=== PATIENT | female | born 1990 | race Caucasian/White ===

== ENCOUNTER → 2018-05-30 | Outpatient (CLI) | payer MEDICAID ==
--- NOTE | 2018-05-30 14:21 | Diagnostic Imaging Report ---
INDICATION: survey. TECHNIQUE: Multiple real-time grayscale images were obtained over the gravid uterus. COMPARISON: None. FINDINGS: There is a single live fetus in a breach presentation. Placenta is posterior. Amniotic fluid volume appears normal. heart rate was recorded at 152 beats per minute. survey demonstrates kidneys, bladder and stomach to be unremarkable. brain is unremarkable. There is a four-chamber heart. There is a three-vessel cord with normal insertion. spine is unremarkable although the lumbar spine was not well seen on today's study due to position. Biometrical measurements are as follows: Biparietal 7.2 cm, age 29 weeks 0 days. Head circumference 26.9 cm, age 29 weeks 3 days. Abdominal circumference 25.7 cm, age 29 weeks 6 days. Femur length 5.7 cm, age 29 weeks 6 days. Sonographic estimate age: 29 weeks 4 days. Sonographic estimated date of delivery: 08/11/18. Estimated Weight: 1438 gm (+/- 210 gm). LMP percentile: 41%. heart rate: 152 beats per minute. number: 1 of 1. IMPRESSION: Single live IUP 29 weeks 4 days gestational age. Estimated date of confinement sonographically is 08/11/2018. survey is unremarkable although the lumbar spine was not well visualized. Followup could be performed. Dictated by: Dictated on workstation # [id number]
== END ==
LOC: RAD 13:01
PROVIDERS: ATTEND Family Medicine
DX: Z36.89 Encounter for other specified antenatal screening (principal); Z3A.29 29 weeks gestation of pregnancy
CPT/HCPCS: 76805

== ENCOUNTER → 2018-08-14 | Outpatient (CLI) | payer MEDICAID ==
[~2018-08-14] MED LIST: ACHD5005 PO; AMOX-358 PO; CLIN300C3 PO; DOCU100C37 PO; IBUP-844 PO; OMEP10CA4 PO; PREN-142 PO
[2018-08-14 14:34] VITALS: BP 127/60
--- NOTE | 2018-08-14 14:47 | Diagnostic Imaging Report ---
INDICATION: Post term. FINDINGS: There is a single live fetus in a cephalic presentation. The heart rate was recorded at 124 BPM. The amniotic fluid index is 10.4 cm. The placenta is posterior. The biophysical profile score is normal at 8 out of 8 points. IMPRESSION: The biophysical profile score is 8 out of 8 points. Dictated by: Dictated on workstation # [id number]
== END ==
LOC: RAD 12:31
PROVIDERS: ATTEND Family Medicine
DX: O48.0 Post-term pregnancy (principal); Z3A.42 42 weeks gestation of pregnancy
CPT/HCPCS: 76819

== ENCOUNTER 2018-08-17 02:27 | Inpatient (IN) | payer MEDICAID ==
[2018-08-17] VITALS (58 sets, daily range): BP systolic 105–152; BP diastolic 52–96
[~2018-08-17] VITALS: Ht 154.9 cm; Wt 77.6 kg
[2018-08-17] MEDS ORDERED: AMPICILLIN FOR IV USE 2,000 MG in NS (IVPB) 50 ML IV SCH (02:54)
[2018-08-17] MEDS: D5 LR IV SOLUTION 1,000 ML IV SCH ×3 (03:00→15:50)
[2018-08-17] MEDS ORDERED: OMEP10CA4 PO (03:01)
[2018-08-17] MEDS ORDERED: PREN-142 PO (03:01)
[2018-08-17] MEDS ORDERED: AMPICILLIN 2,000 MG/20 ML (IV USE) ONE (03:06)
[2018-08-17] MEDS ORDERED: NS (IVPB) 50 ML ONE (03:06)
--- OUTSIDE RECORDS SUMMARY | 2018-08-17 03:12 | XMS REPORT ---
Author Author CHICA ALVAREZ [facility] Address [address] [place] [address] Care Team Providers Care Support Manager Name Role Phone CHICA ALVAREZ Unavailable PROBLEMS Unknown Problems ALLERGIES No Information ENCOUNTERS Encounter Location Date Diagnosis [facility] [id number] [place] [address] 40345- 0297 Jun, [facility] [id number] [place] [address] 99532- 9043 Jun, Third trimester Z34.93 [place] [id number] [place] [address] 41753- 0867 Jun, Third trimester Z34.93 [facility] [id number] [place] [address] 30986- 9398 May, Second trimester Z34.92 and Encounter for immunization Z23 [facility] [id number] [place] [address] 29822- 4850 Apr, Encounter for supervision of normal in second trimester Z34.92 [facility] [id number] [place] [address] 58271- 9918 Apr, [facility] [id number] [place] [address] 02021- 3077 Mar, Normal , first Z34.00 [facility] [id number] [place] [address] 62778- 0620 February, [facility] [id number] [place] [address] 12554- 8997 February, Normal , first Z34.00 [facility] [id number] [place] [address] 87509- 6770 Jan, Encounter for test, result unknown Z32.00 [facility] [id number] [place] [address] 17085- 2747 19 Jun, 2017 General medical exam Z00.00 ; Routine gynecological examination Z01.419 ; History of UTI Z87.440 and Vaginal discharge N89.8 [facility] [id number] [place] [address] 08046- 0633 May, [facility] [id number] [place] [address] 78253- 2188 17 May, 2017 Lower abdominal pain R10.30 ; Vaginal discharge N89.8 and Acute cystitis with hematuria N30.01 [facility] [id number] [place] [address] 83199- 9160 16 May, 2017 [facility] [id number] [place] [address] 07404- 6638 14 Jan, 2015 [facility] [id number] [place] [address] 99227- 2215 Jan, [facility] [id number] [place] [address] 84005- 9199 Jul, [facility] [id number] [place] [address] 28390- 5406 Jul, [facility] [id number] [place] [address] 50592- 0183 Sep, [facility] [id number] [place] [address] 93835- 1205 Sep, [facility] [id number] [place] [address] 13098- 9428 Sep, [facility] [id number] [place] [address] 63926- 7775 Sep, [facility] [id number] [place] [address] 59664- 5607 Sep, [facility] [id number] [address] 2546 Sep, 2012 [facility] [address] [address]- 7666 Sep, [facility] [id number], [place] [address]- 8274 Sep, 2012 [facility] [id number] [place] [address] 73175- 8078 Sep, 2012 [facility] [id number] [place] [address] 071403- 2632 Aug, [facility] [id number] [place] [address] 19763- 1672 Aug, [facility] [id number] [place] [address] 226245- 1131 Aug, [facility] [id number] [place] [address] 08845- 1147 Jul, [facility] [address] [address]- 3981 Jul, [facility] [id number] [address]- 3301 Jun, IMMUNIZATIONS Vaccine Route Administration Date Status TDAP (BOOSTRIX) IM Intramuscular Jun 13, 2018 Administered SOCIAL HISTORY Never Assessed REASON FOR VISIT 4 wk f/u-awoods PLAN OF CARE Activity Details Follow Up 2 Weeks Reason: VITAL SIGNS Height 61 in 2018-06-13 Weight 153.5 lbs 2018-06-13 Temperature 98.6 degrees Fahrenheit 2018-06-13 Heart Rate 107 bpm 2018-06-13 Respiratory Rate 18 2018-06-13 BMI 29.004 kg/m2 2018-06-13 Blood pressure systolic 98 mmHg 2018-06-13 Blood pressure diastolic 62 mmHg 2018-06-13 MEDICATIONS Medication Instructions Dosage Frequency Start Date End Date Duration Status Active Omeprazole 20 mg Orally Once a day 1 capsule 24h May, 30 day(s ) Active RESULTS Name Result Date Reference Range UA OB DIP (IN HOUSE) 2018-06-13 Glucose neg Protein 1+ PROCEDURES Procedure Date Ordered Result Body Site URINE-NO MICRO Jun 13, 2018 SINGLE IMMUNIZATION ADMIN Jun 13, 2018 TDAP (BOOSTRIX) Jun 13, 2018 INSTRUCTIONS MEDICATIONS ADMINISTERED No Known Medications MEDICAL (GENERAL) HISTORY Type Description Date Surgical History No know Surgical history
--- OUTSIDE RECORDS SUMMARY | 2018-08-17 03:12 | XMS REPORT ---
Author CHICA Saha [facility] Address [address] [place] [address] Care Team Providers Care Cavalry Officer Name Role Phone CHICA ALVAREZ Unavailable PROBLEMS Unknown Problems ALLERGIES ENCOUNTERS IMMUNIZATIONS No Known Immunizations SOCIAL HISTORY No smoking Hx information available REASON FOR VISIT PLAN OF CARE VITAL SIGNS MEDICATIONS RESULTS PROCEDURES INSTRUCTIONS MEDICATIONS ADMINISTERED No Known Medications MEDICAL (GENERAL) HISTORY
--- OUTSIDE RECORDS SUMMARY | 2018-08-17 03:12 | XMS REPORT ---
Author Author CHICA ALVAREZ [facility] Address [address] [place] [address] Care Team Providers Care Oyster Preparer Name Role Phone CHICA ALVAREZ Unavailable PROBLEMS Unknown Problems ALLERGIES Substance Reaction Event Type Date Status Miconazole rash Drug Allergy Apr, Active Diflucan rash Drug Allergy Apr, Active Codeine Pt's mom is allergic so she does not try it Drug Allergy Apr, Active ENCOUNTERS Encounter Location Date Diagnosis [facility] [id number] [place] [address] 36998- 6449 Jun, [place] [address] 69034- 1863 Jun, Third trimester Z34.93 [facility] [id number] [place] [address] 78610- 5940 May, Second trimester Z34.92 and Encounter for immunization Z23 [facility] [id number] [place] [address] 53360- 3066 Apr, Encounter for supervision of normal in second trimester Z34.92 [facility] [id number] [place] [address] 39163- 3151 Apr, [facility] [id number] [place] [address] 24769- 6238 Mar, Normal , first Z34.00 [facility] [id number] [place] [address] 93574- 2162 February, [facility] [id number] [place] [address] 11025- 2675 February, Normal , first Z34.00 [facility] [address] [place] [address]- 1430 27 Jan, 2018 Encounter for test, result unknown Z32.00 [facility] [id number] [place] [address] 58172- 4852 19 Jun, 2017 General medical exam Z00.00 ; Routine gynecological examination Z01.419 ; History of UTI Z87.440 and Vaginal discharge N89.8 [facility] [id number] [place] [address] 66206- 3870 May, [facility] [id number] [place] [address] 43709- 0202 17 May, 2017 Lower abdominal pain R10.30 ; Vaginal discharge N89.8 and Acute cystitis with hematuria N30.01 [facility] [id number] [place] [address] 62751- 7938 16 May, 2017 [facility] [id number] [place] [address] 68459- 7889 14 Jan, 2015 [facility] [id number] [place] [address] 65065- 0079 Jan, [facility] [id number] [place] [address] 36805- 5175 Jul, [facility] [id number] [place] [address] 87088- 5943 Jul, [facility] [id number] [place] [address] 79340- 5563 Sep, [facility] [id number] [place] [address] 61192- 8317 Sep, [facility] [id number] [place] [address] 09712- 4390 Sep, [facility] [id number], [place] [address]- 0565 Sep, [facility] [id number] [place] [address] 719220- 5702 Sep, [facility] [address] [facility] [id number] [address]- 2546 Sep, [facility] [address] [facility] [id number], [place] [address]- 2546 Sep, [facility] [address] [facility] [id number], [place] [address]- 2546 Sep, [facility] [address] [facility] [id number], [place] [address]- 2545 Sep, [facility] [address] [facility] [id number], [place] [address]- 2003 Aug, [facility] [address] [facility] [id number], [place] [address] 2541 Aug, [facility] [id number], [place] [address] 2542 Aug, [facility] [id number], [place] [address] 2548 Jul, [facility] [id number], [place] [address] 2548 Jul, [facility] [id number] [address] 254 Jun, IMMUNIZATIONS No Known Immunizations SOCIAL HISTORY Never Assessed REASON FOR VISIT 4 wk f/u-Wanda PLAN OF CARE Activity Details Follow Up 4 Weeks Reason: VITAL SIGNS Height 61 in 2018-05-16 Weight 149.1 lbs 2018-05-16 Temperature 97.8 degrees Fahrenheit 2018-05-16 Heart Rate 96 bpm 2018-05-16 Respiratory Rate 18 2018-05-16 BMI 28.172 kg/m2 2018-05-16 Blood pressure systolic 108 mmHg 2018-05-16 Blood pressure diastolic 64 mmHg 2018-05-16 MEDICATIONS Medication Instructions Dosage Frequency Start Date End Date Duration Status Active RESULTS No Results PROCEDURES No Known procedures INSTRUCTIONS MEDICATIONS ADMINISTERED No Known Medications
--- OUTSIDE RECORDS SUMMARY | 2018-08-17 03:12 | XMS REPORT ---
Author Author CHICA ALVAREZ [facility] Address [address] [place] [address] Care Team Providers Care Electrical Intern Name Role Phone CHICA ALVAREZ Unavailable PROBLEMS Unknown Problems ALLERGIES No Information ENCOUNTERS Encounter Location Date Diagnosis [facility] [id number] [place] [address] 45136- 9783 Jul, [facility] [id number] [place] [address] 99512- 0594 Jun, Third trimester Z34.93 [facility] [id number] [place] [address] 80186- 9726 Jun, Third trimester Z34.93 [facility] [id number] [place] [address] 20135- 5428 Jun, Third trimester Z34.93 [facility] [id number] [place] [address] 54722- 8520 May, Second trimester Z34.92 and Encounter for immunization Z23 [facility] [id number] [place] [address] 90084- 7200 Apr, Encounter for supervision of normal in second trimester Z34.92 [facility] [id number] [place] [address] 98262- 5513 Apr, [facility] [id number] [place] [address] 78184- 4998 Mar, Normal , first Z34.00 [facility] [id number] [place] [address] 45820- 9887 February, [facility] [id number] [place] [address] 39077- 2219 February, Normal , first Z34.00 [facility] [id number] [place] [address] 30629- 0278 27 Jan, 2018 Encounter for test, result unknown Z32.00 [facility] [address], [place] [address]- 0984 19 Jun, 2017 General medical exam Z00.00 ; Routine gynecological examination Z01.419 ; History of UTI Z87.440 and Vaginal discharge N89.8 [facility] [id number] [place] [address] 64512- 2853 May, [facility] [id number] [place] [address] 20775- 2764 17 May, 2017 Lower abdominal pain R10.30 ; Vaginal discharge N89.8 and Acute cystitis with hematuria N30.01 [facility] [id number] [place] [address] 72204- 2481 16 May, 2017 [facility] [id number] [place] [address] 43624- 2462 14 Jan, 2015 [facility] [id number] [place] [address] 63457- 9374 Jan, [facility] [id number] [place] [address] 58280- 1277 Jul, [facility] [id number] [place] [address] 56438- 0346 Jul, [facility] [id number] [place] [address] 32831- 9466 Sep, [facility] [id number] [place] [address] 00937- 5421 Sep, [facility] [id number] [place] [address] 62372- 9040 Sep, [facility] [id number] [place] [address] 08047- 8559 Sep, [facility] [id number], [place] [address]- 0175 Sep, [facility] [id number], [place] [address]- 7931 Sep, [facility] [id number], [place] [address]- 8089 Sep, [facility] [id number] [place] [address] 03288- 4117 Sep, [facility] [id number] [place] [address] 204393- 9229 Sep, [facility] [id number] [place] [address] 395468- 4341 Aug, [facility] [id number] [place] [address] 653753- 7681 Aug, [facility] [id number] [place] [address] 308690- 1359 Aug, [facility] [address]- 7150 Jul, [facility] [id number] [place] [address] 74589- 2643 Jul, [facility] [id number], [place] [address]- 9992 Jun, IMMUNIZATIONS No Known Immunizations SOCIAL HISTORY Never Assessed REASON FOR VISIT 3 wk f/u PLAN OF CARE Activity Details Follow Up 1 Week Reason: VITAL SIGNS Height 61 in 2018-07-04 Weight 156 lbs 2018-07-04 Temperature 98.0 degrees Fahrenheit 2018-07-04 Heart Rate 88 bpm 2018-07-04 Respiratory Rate 20 2018-07-04 BMI 29.476 kg/m2 2018-07-04 Blood pressure systolic 102 mmHg 2018-07-04 Blood pressure diastolic 74 mmHg 2018-07-04 MEDICATIONS Medication Instructions Dosage Frequency Start Date End Date Duration Status Omeprazole 20 mg Orally Once a day 1 capsule 24h May, 30 day(s ) Active Active RESULTS No Results PROCEDURES Procedure Date Ordered Result Body Site LAB [facility] Jul 04, 2018 VENIPUNCT, ROUTINE* Jul 04, 2018 URINE-NO MICRO Jul 04, 2018 INSTRUCTIONS MEDICATIONS ADMINISTERED No Known Medications MEDICAL (GENERAL) HISTORY Type Description Date Surgical History No know Surgical history
--- OUTSIDE RECORDS SUMMARY | 2018-08-17 03:12 | XMS REPORT ---
Author Author CHICA ALVAREZ [facility] Address [address] [place] [address] Care Team Providers Care Solar Applications Development Engineer Name Role Phone CHICA ALVAREZ Unavailable PROBLEMS Unknown Problems ALLERGIES No Information ENCOUNTERS Encounter Location Date Diagnosis [facility] [address] [place] [address] 01664- 3718 Jul, [facility] [id number] [place] [address] 34137- 2809 Jul, [facility] [id number] [place] [address] 91957- 7350 Jul, Third trimester Z34.93 [facility] [id number] [place] [address] 81495- 2183 Jun, Third trimester Z34.93 [facility] [id number] [place] [address] 92623- 5471 Jun, Third trimester Z34.93 [facility] [id number] [place] [address] 70302- 1956 05 Jun, 2018 Third trimester Z34.93 [facility] [id number] [place] [address] 50643- 4783 May, Second trimester Z34.92 and Encounter for immunization Z23 [facility] [id number] [place] [address] 51430- 3029 Apr, Encounter for supervision of normal in second trimester Z34.92 [facility] [address], [place] [address]- 2184 Apr, [facility] [id number] [place] [address] 15923- 7498 Mar, Normal , first Z34.00 [facility] [address] [place] [address] 43307- 0169 February, [facility] [id number] [place] [address] 39921- 8557 February, Normal , first Z34.00 [facility] [id number] [place] [address] 00233- 5613 Jan, Encounter for test, result unknown Z32.00 [facility] [id number] [place] [address] 70068- 6608 19 Jun, 2017 General medical exam Z00.00 ; Routine gynecological examination Z01.419 ; History of UTI Z87.440 and Vaginal discharge N89.8 [facility] [id number] [place] [address] 95547- 8216 May, [facility] [id number] [place] [address] 38698- 4039 May, Lower abdominal pain R10.30 ; Vaginal discharge N89.8 and Acute cystitis with hematuria N30.01 [facility] [id number] [place] [address] 24378- 3479 May, [facility] [id number] [place] [address] 75122- 2272 14 Jan, 2015 [facility] [id number] [place] [address] 12724- 1697 Jan, [facility] [address] [place] [address] 95689- 3759 Jul, [facility] [id number] [place] [address] 01418- 5064 Jul, [facility] [id number] [place] [address] 48429- 2435 Sep, [facility] [id number] [place] [address] 22304- 4890 Sep, [facility] [id number] 3553 Sep, 2012 [facility] [address]- 5986 Sep, 2012 [facility] [address] [place] [address]- 9388 09 Sep, 2012 [facility] [address] 1504 Sep, 2012 [facility] [address]- 3744 Sep, 2012 [facility] [address]- 2178 Sep, [facility] [address]- 9998 Sep, [facility] [address], [place] [address] Aug, [facility] [id number] [address] Aug, [facility] [id number] [address] Aug, [facility] [id number] [address] Jul, [facility] [id number] [address] Jul, [facility] [id number] [address] Jun, IMMUNIZATIONS No Known Immunizations SOCIAL HISTORY Never Assessed REASON FOR VISIT OB 1 wk f/u, OB dip , check cervix today PLAN OF CARE Activity Details Follow Up 1 Week Reason: VITAL SIGNS Height 61 in 2018-08-01 Weight 161.2 lbs 2018-08-01 Temperature 98.8 degrees Fahrenheit 2018-08-01 Heart Rate 98 bpm 2018-08-01 Respiratory Rate 20 2018-08-01 BMI 30.458 kg/m2 2018-08-01 Blood pressure systolic 118 mmHg 2018-08-01 Blood pressure diastolic 68 mmHg 2018-08-01 MEDICATIONS Unknown Medications RESULTS Name Result Date Reference Range UA OB DIP (IN HOUSE) 2018-08-01 Glucose negative Protein trace PROCEDURES Procedure Date Ordered Result Body Site URINE-NO MICRO Aug 01, 2018 INSTRUCTIONS MEDICATIONS ADMINISTERED No Known Medications MEDICAL (GENERAL) HISTORY Type Description Date Surgical History No know Surgical history
--- OUTSIDE RECORDS SUMMARY | 2018-08-17 03:12 | XMS REPORT ---
Author Author CHICA ALVAREZ [facility] Address [address] [place] [address] Care Team Providers Care Chemical Blender Name Role Phone CHICA ALVAREZ Unavailable PROBLEMS Unknown Problems ALLERGIES Substance Reaction Event Type Date Status Miconazole rash Drug Allergy Mar, Active Diflucan rash Drug Allergy Mar, Active Codeine Pt's mom is allergic so she does not try it Drug Allergy Mar, Active ENCOUNTERS Encounter Location Date Diagnosis [facility] [id number] [place] [address] 29451- 3908 Jun, [place] [address] [address]- [address] May, Second trimester Z34.92 and Encounter for immunization Z23 [facility] [id number] [place] [address] 34514- 9392 Apr, Encounter for supervision of normal in second trimester Z34.92 [facility] [id number] [place] [address] 92860- 8975 Apr, [facility] [id number] [place] [address] 33051- 2868 Mar, Normal , first Z34.00 [facility] [id number] [place] [address] 73324- 8928 February, [facility] [id number] [place] [address] 97824- 6251 February, Normal , first Z34.00 [facility] [address] [place] [address] 81210- 4182 Jan, Encounter for test, result unknown Z32.00 [facility] [id number] [address] 19 Jun, 2017 General medical exam Z00.00 ; Routine gynecological examination Z01.419 ; History of UTI Z87.440 and Vaginal discharge N89.8 [facility] [address] [address] 0[address] May, [facility] [address], [place] [address]- 8602 May, Lower abdominal pain R10.30 ; Vaginal discharge N89.8 and Acute cystitis with hematuria N30.01 [facility] [address] [address] 1228 May, [facility] [address], [place] [address]- 6802 Jan, [facility] [address], [place] [address] 8340 Jan, [facility] [address], [place] [address]- 6926 Jul, [facility] [address], [place] [address]- 6686 Jul, [facility] [address], [place] [address]- 4985 Sep, [facility] [address], [place] [address]- 5854 Sep, [facility] [address], [place] [address]- 2175 Sep, [facility] [address], [place] [address]- 2988 Sep, [facility] [address], [place] [address]- 2336 Sep, [facility] [address], [place] [address]- 2226 Sep, [facility] [id number], [place] [address]- 2546 Sep, [facility] [id number], [place] [address]- 2546 Sep, [facility] [id number], [place] [address]- 2546 Sep, [facility] [address], [place] [address]- 2546 Aug, [facility] [address], [place] [address]- 2546 Aug, [facility] [address] [place] [address] 65565- 2546 Aug, [facility] [address], [place] [address]- 2546 Jul, [facility] [address], [place] [address]- 2546 Jul, [facility] [id number], [place] [address]- 2546 Jun, IMMUNIZATIONS No Known Immunizations SOCIAL HISTORY Never Assessed REASON FOR VISIT 4 wk f/u-BRANDEN helton PLAN OF CARE Activity Details Follow Up 4 Weeks Reason: Pending Test SYPHILIS (STATE) Pending Test HIV (STATE) VITAL SIGNS Height 61 in 2018-04-18 Weight 142.1 lbs 2018-04-18 Temperature 98.4 degrees Fahrenheit 2018-04-18 Heart Rate 88 bpm 2018-04-18 Respiratory Rate 18 2018-04-18 BMI 26.85 kg/m2 2018-04-18 Blood pressure systolic 108 mmHg 2018-04-18 Blood pressure diastolic 58 mmHg 2018-04-18 MEDICATIONS Medication Instructions Dosage Frequency Start Date End Date Duration Status Active RESULTS No Results PROCEDURES Procedure Date Ordered Result Body Site VENIPUNCT, ROUTINE* April 18, 2018 URINE-NO MICRO April 18, 2018 ASSAY THYROID STIM HORMONE April 18, 2018 RBC ANTIBODY SCREEN April 18, 2018 RUBELLA ANTIBODY April 18, 2018 COMPLETE CBC W/AUTO DIFF WBC April 18, 2018 No Charge April 18, 2018 BLOOD TYPING, ABO April 18, 2018 BLOOD TYPING, RH (D) April 18, 2018 INSTRUCTIONS MEDICATIONS ADMINISTERED No Known Medications
--- OUTSIDE RECORDS SUMMARY | 2018-08-17 03:13 | XMS REPORT ---
Author Author CHICA ALVAREZ [facility] Address [address] [place] [address] Care Team Providers Care Expeditionary Force Combat Skills Name Role Phone CHICA ALVAREZ Unavailable PROBLEMS Unknown Problems ALLERGIES Substance Reaction Event Type Date Status Miconazole rash Drug Allergy February, Active Diflucan rash Drug Allergy February, Active Codeine Pt's mom is allergic so she does not try it Drug Allergy February, Active ENCOUNTERS Encounter Location Date Diagnosis [facility] [id number] [place] [address] 95283- 2176 Jun, [place] [address] 29525- 9939 May, Second trimester Z34.92 and Encounter for immunization Z23 [facility] [id number] [place] [address] 41695- 4394 Apr, Encounter for supervision of normal in second trimester Z34.92 [facility] [id number] [place] [address] 35090- 7857 Apr, [facility] [id number] [place] [address] 27559- 3113 Mar, Normal , first Z34.00 [facility] [id number] [place] [address] 77955- 5772 February, [facility] [id number] [place] [address] 76912- 5742 February, Normal , first Z34.00 [facility] [address] [place] [address] 23094- 8875 Jan, Encounter for test, result unknown Z32.00 [facility] [address] [address] 4212 19 Jun, 2017 General medical exam Z00.00 ; Routine gynecological examination Z01.419 ; History of UTI Z87.440 and Vaginal discharge N89.8 [facility] [address], [place] [address]- 7699 May, [facility] [address], [place] [address]- 9438 May, Lower abdominal pain R10.30 ; Vaginal discharge N89.8 and Acute cystitis with hematuria N30.01 [facility] [address], [place] [address]- 4003 May, [facility] [address], [place] [address]- 8757 Jan, [facility] [address], [place] [address]- 7226 Jan, [facility] [address], [place] [address]- 7353 Jul, [facility] [address], [place] [address]- 5721 Jul, [facility] [address], [place] [address]- 5162 Sep, [facility] [address], [place] [address]- 0431 Sep, [facility] [address], [place] [address]- 2814 Sep, [facility] [address], [place] [address]- 6282 Sep, [facility] [address], [place] [address]- 8211 Sep, [facility] [address], [place] [address]- 6305 Sep, [facility] [id number], [place] [address]- 2546 Sep, [facility] [id number], [place] [address]- 2546 Sep, [facility] [id number] [address]- 2546 Sep, [facility] [address], [place] [address]- 2546 Aug, [facility] [address], [place] [address]- 2546 Aug, [facility] [address], [place] [address]- 2546 Aug, [facility] [address], [place] [address]- 2546 Jul, [facility] [address], [place] [address]- 2546 Jul, [facility] [id number], [place] [address]- 2546 Jun, IMMUNIZATIONS No Known Immunizations SOCIAL HISTORY Never Assessed REASON FOR VISIT OB-intake--neri Ivory explains she fainted twice once in the laundry mat and once in the shower pt did not know if she had low blood sugar, and is having heart burn PLAN OF CARE Activity Details Follow Up 4 Weeks Reason: VITAL SIGNS Height 61 in 2018-03-14 Weight 131.8 lbs 2018-03-14 Temperature 98.3 degrees Fahrenheit 2018-03-14 Heart Rate 80 bpm 2018-03-14 Respiratory Rate 20 2018-03-14 BMI 24.903 kg/m2 2018-03-14 Blood pressure systolic 112 mmHg 2018-03-14 Blood pressure diastolic 58 mmHg 2018-03-14 MEDICATIONS Medication Instructions Dosage Frequency Start Date End Date Duration Status Vitamin 27-0.8 MG Orally Once a day 1 tablet 24h Active RESULTS No Results PROCEDURES Procedure Date Ordered Result Body Site TRICHOMONAS ASSAY W/OPTIC March 14, 2018 URINE CULTURE/COLONY COUNT March 14, 2018 CULTURE, BACTERIA, OTHER March 14, 2018 URINALYSIS, AUTO, W/O SCOPE March 14, 2018 INSTRUCTIONS MEDICATIONS ADMINISTERED No Known Medications
--- OUTSIDE RECORDS SUMMARY | 2018-08-17 03:13 | XMS REPORT ---
Author Author KATHERINE ENCISO [facility] Address [address] [place] [address] Care Team Providers Care Decorating Equipment Setter Name Role Phone KATHERINE ENCISO Unavailable PROBLEMS Unknown Problems ALLERGIES No Information ENCOUNTERS Encounter Location Date Diagnosis [place] [id number] [place] [address] 84958- 3017 Mar, [place] [id number] [place] [address] 13050- 6129 February, [place] [id number] [place] [address] 44844- 3583 February, Normal , first Z34.00 [place] [id number] [place] [address] 71838- 7686 27 Jan, 2018 Encounter for test, result unknown Z32.00 [place] [id number] [place] [address] 75775- 3099 19 Jun, 2017 General medical exam Z00.00 ; Routine gynecological examination Z01.419 ; History of UTI Z87.440 and Vaginal discharge N89.8 [place] [id number] [place] [address] 41532- 5350 May, [place] [id number] [place] [address] 31020- 2984 May, Lower abdominal pain R10.30 ; Vaginal discharge N89.8 and Acute cystitis with hematuria N30.01 [place] [id number] [place] [address] 32712- 2524 May, [place] [id number] [place] [address] 57701- 7823 Jan, [facility] [address] [id number] [place] [address]- 5923 Jan, [facility] [address] [id number] [place] [address]- 6862 Jul, [facility] [place] [facility] [address] [id number] [place] [address]- 0284 Jul, [facility] [address] [id number] [place] [address]- 0862 Sep, [facility] [address] [id number] [place] [address]- 1005 16 Sep, 2013 [facility] [place] [facility] [address] [id number] [place] [address]- 7849 Sep, [facility] [address] [id number] [place] [address]- 8469 Sep, [facility] [address] [id number] [place] [address]- 1465 Sep, [facility] [address] [id number] [place] [address]- 2032 Sep, [facility] [place] [facility] [address] [id number] [place] [address]- 8272 Sep, [facility] [place] [facility] [address] [id number] [place] [address]- 6452 Sep, [facility] [place] [facility] [address] [id number] [place] [address]- 5716 Sep, [facility] [place] [facility] [address] [id number] [place] [address]- 7990 Aug, [facility] [place] [facility] [address] [id number] [place] [address]- 3595 Aug, [facility] [place] [facility] [address] [id number] [place] [address]- 8127 Aug, [facility] [place] [facility] [address] [id number] [place] [address]- 3216 Jul, [facility] [address] [facility] [id number] [address]- 2546 Jul, [facility] [address] [facility] [id number] [place] [address]- 2546 Jun, IMMUNIZATIONS No Known Immunizations SOCIAL HISTORY Never Assessed REASON FOR VISIT Requests return call PLAN OF CARE VITAL SIGNS MEDICATIONS Unknown Medications RESULTS No Results PROCEDURES No Known procedures INSTRUCTIONS MEDICATIONS ADMINISTERED No Known Medications
--- OUTSIDE RECORDS SUMMARY | 2018-08-17 03:13 | XMS REPORT ---
Author Author KLEBER SUBRAMANIAN [facility] Address [address] [place] [address] Care Team Providers Care Freezing Machine Operator Name Role Phone SUBRAMANIAN KLEBER Unavailable PROBLEMS Unknown Problems ALLERGIES Substance Reaction Event Type Date Status Miconazole rash Drug Allergy February, Active Diflucan rash Drug Allergy February, Active Codeine Pt's mom is allergic so she does not try it Drug Allergy February, Active ENCOUNTERS Encounter Location Date Diagnosis [place] [id number] [place] [address] 75118- 6558 May, [place] [address] 30299- 4681 Apr, Encounter for supervision of normal in second trimester Z34.92 [place] [id number] [place] [address] 89772- 0218 Apr, [place] [id number] [place] [address] 51800- 4882 Mar, Normal , first Z34.00 [facility] [id number] [place] [address] 59085- 4756 February, [facility] [id number] [place] [address] 19582- 5334 February, Normal , first Z34.00 [place] [id number] [place] [address] 07810- 9647 Jan, Encounter for test, result unknown Z32.00 [place] [id number] [place] [address] 00621- 9751 Jun, General medical exam Z00.00 ; Routine gynecological examination Z01.419 ; History of UTI Z87.440 and Vaginal discharge N89.8 [facility] [address] [facility] [id number] [place] [address]- 2398 May, [facility] [address] [address] 1992 May, Lower abdominal pain R10.30 ; Vaginal discharge N89.8 and Acute cystitis with hematuria N30.01 [facility] [address] [facility] [id number] [place] [address], [place] [address]- 6717 May, [facility] [address] [facility] [id number] [place] [address]- 7416 Jan, [facility] [id number] [place] [address], [place] 7373 Jan, [facility] [id number]- 1583 Jul, [facility] [address] [place] [address] 04077- 3952 Jul, [facility] [address], [place] [address]- 0348 Sep, [facility] [address], [place] [address]- 9703 Sep, [facility] [address], [place] [address]- 6688 Sep, [facility] [address], [place] [address]- 8944 Sep, [facility] [id number], [place] [address]- 9699 Sep, [facility] [address], [place] [address]- 8616 Sep, [facility] [id number], [place] [address]- 4906 06 Sep, 2013 [facility] [address], [place] [address]- 0141 Sep, [facility] [id number], [place] [address]- 2546 Sep, [facility] [address], [place] [address]- 2546 Aug, [facility] [id number], [place] [address]- 2546 Aug, [facility] [address], [place] [address]- 2546 Aug, [facility] [address], [place] [address]- 2546 Jul, [facility] [address], [place] [address]- 2546 Jul, [facility] [address], [place] [address]- 2546 Jun, IMMUNIZATIONS No Known Immunizations SOCIAL HISTORY Never Assessed REASON FOR VISIT PLAN OF CARE VITAL SIGNS MEDICATIONS Medication Instructions Dosage Frequency Start Date End Date Duration Status Active RESULTS No Results PROCEDURES No Known procedures INSTRUCTIONS MEDICATIONS ADMINISTERED No Known Medications
--- OUTSIDE RECORDS SUMMARY | 2018-08-17 03:13 | XMS REPORT ---
Author Author KATHERINE ENCISO [facility] Address [address] [place] [address] Care Team Providers Care Band Builder Name Role Phone KATHERINE ENCISO Unavailable PROBLEMS Unknown Problems ALLERGIES Substance Reaction Event Type Date Status Miconazole rash Drug Allergy Jun, Active Diflucan rash Drug Allergy Jun, Active Codeine Pt's mom is allergic so she does not try it Drug Allergy Jun, Active ENCOUNTERS Encounter Location Date Diagnosis [place] [id number] [place] [address] 03566- 9137 Jan, Encounter for test, result unknown Z32.00 [place] [id number] [place] [address] 03514- 5262 Jun, General medical exam Z00.00 ; Routine gynecological examination Z01.419 ; History of UTI Z87.440 and Vaginal discharge N89.8 [place] [id number] [place] [address] 87812- 9481 May, [place] [id number] [place] [address] 76843- 6954 17 May, 2017 Lower abdominal pain R10.30 ; Vaginal discharge N89.8 and Acute cystitis with hematuria N30.01 [place] [address] [place] [address] 09308- 6979 May, [place] [id number] [place] [address] 73329- 4223 14 Jan, 2015 [place] [id number] [place] [address] 86169- 5478 13 Jan, 2015 [place] [id number] [place] [address] 53229- 0711 Jul, [facility] [place] [facility] [address] [id number] [place] [address]- 0545 Jul, [facility] [place] [facility] [address] [id number] [place] [address]- 6926 Sep, [facility] [place] [facility] [address] [id number] [place] [address]- 8159 Sep, [facility] [place] [facility] [address] [id number] [place] [address]- 4760 Sep, [facility] [place] [facility] [address] [id number] [place] [address]- 7602 Sep, [facility] [place] [facility] [address] [id number] [place] [address]- 6524 Sep, [facility] [place] [facility] [address] [id number] [place] [address]- 3518 Sep, [facility] [place] [facility] [address] [id number] [place] [address]- 4783 Sep, [facility] [place] [facility] [address] [id number] [place] [address]- 1218 Sep, [facility] [place] [facility] [address] [id number] [place] [address]- 3848 Sep, [facility] [place] [facility] [address] [id number] [place] [address]- 3331 Aug, [facility] [place] [facility] [address] [id number] [address]- 6246 Aug, [facility] [place] [facility] [address] [id number] [place] [address]- 0929 Aug, [facility] [place] [facility] [address] [id number] [place] [address]- 5298 Jul, [facility] [place] [facility] [address] [id number] [place] [address]- 8272 Jul, [facility] [place] [facility] [address] [id number] [place] [address]- 0710 Jun, IMMUNIZATIONS No Known Immunizations SOCIAL HISTORY Never Assessed REASON FOR VISIT Annual physical (female), pt states she has still had some vaginal irritation- AHarrymanRN, Reports still have fishy order, lower back pain PLAN OF CARE Activity Details Follow Up prn, 1 Year or reg fu with her pcp Reason: VITAL SIGNS Height 61 in 2017-07-18 Weight 109.0 lbs 2017-07-18 Temperature 98.7 degrees Fahrenheit 2017-07-18 Heart Rate 88 bpm 2017-07-18 Respiratory Rate 18 2017-07-18 BMI 20.59 kg/m2 2017-07-18 Blood pressure systolic 98 mmHg 2017-07-18 Blood pressure diastolic 62 mmHg 2017-07-18 MEDICATIONS Medication Instructions Dosage Frequency Start Date End Date Duration Status Flagyl 500 mg Orally 2 times a day 1 tablet 12h Jun, Jun, 07 days Active RESULTS Name Result Date Reference Range TEST, URINE (IN HOUSE) 2017-07-18 RESULTS Negative Lot # [id number] Control + Exp date 11/29/2018 UA LONG DIP (IN HOUSE) 2017-07-18 Lot # [id number] Exp date 01/27/2018 Clarity Slightly Cloudy Color Dark Yellow Odor None GLU Negative LESA Negative KET Negative SG 1.020 BLO Negative pH 7.0 Protein Negative URO 0.2 NIT Negative RAJEEV Negative Lot # Exp date TSH 2017-07-18 TSH 1.390 0.450-4.500 CMP 2017-07-18 Glucose, Serum 83 65-99 BUN 7 6-20 Creatinine, Serum 0.74 0.57-1.00 eGFR If NonAfricn Am 113 >59 eGFR If Africn Am 130 >59 BUN/Creatinine Ratio 9 9-23 Sodium, Serum 139 134-144 Potassium, Serum 4.0 3.5-5.2 Chloride, Serum 100 96-106 Carbon Dioxide, Total 22 18-29 Calcium, Serum 9.7 8.7-10.2 Protein, Total, Serum 6.8 6.0-8.5 Albumin, Serum 4.7 3.5-5.5 Globulin, Total 2.1 1.5-4.5 A/G Ratio 2.2 1.2-2.2 Bilirubin, Total 0.5 0.0-1.2 Alkaline Phosphatase, S 52 39-117 AST (SGOT) 15 0-40 ALT (SGPT) 10 0-32 PAP TEST, HPV IF ASCUS 2017-07-18 DIAGNOSIS: Specimen adequacy: Clinician provided ICD10: Performed by: . . Note: . CBC 2017-07-18 WBC 5.8 3.4-10.8 RBC 4.04 3.77-5.28 Hemoglobin 13.0 11.1-15.9 Hematocrit 39.9 34.0-46.6 MCV 99 79-97 MCH 32.2 26.6-33.0 MCHC 32.6 31.5-35.7 RDW 12.8 12.3-15.4 Platelets 276 150-379 Neutrophils 68 Lymphs 23 Monocytes 9 Eos 0 Basos 0 Neutrophils (Absolute) 3.9 1.4-7.0 Lymphs (Absolute) 1.3 0.7-3.1 Monocytes(Absolute) 0.5 0.1-0.9 Eos (Absolute) 0.0 0.0-0.4 Baso (Absolute) 0.0 0.0-0.2 Immature Granulocytes 0 Immature Grans (Abs) 0.0 0.0-0.1 LIPID PANEL 2017-07-18 Cholesterol, Total 95 100-199 Triglycerides 43 0-149 HDL Cholesterol 52 >39 VLDL Cholesterol Roddy 9 5-40 LDL Cholesterol Calc 34 0-99 TRICHOMONAS (IN HOUSE) 2017-07-18 TRICHOMONAS Negative Control [id number] Lot # + Exp date 09/28/2018 PDF Report 2017-07-18 PDF Report1 LCLS BACTERIAL VAGINOSIS (IN HOUSE) 2017-07-18 RESULTS Positive Control + Lot # [id number] Exp date 03/2018 CULTURE, GENITAL 2017-07-18 Genital Culture, Routine Final report Result 1 GC/CHLAM URINE (STATE) 2017-07-18 CHLAMYDIA negative GC negative PROCEDURES Procedure Date Ordered Result Body Site COMPREHEN METABOLIC PANEL Jul 18, 2017 VENIPUNCT, ROUTINE* Jul 18, 2017 SPECIMEN HANDLING Jul 18, 2017 URINALYSIS, AUTO, W/O SCOPE Jul 18, 2017 CULTURE, BACTERIA, OTHER Jul 18, 2017 URINE TEST Jul 18, 2017 COMPLETE CBC W/AUTO DIFF WBC Jul 18, 2017 ASSAY THYROID STIM HORMONE Jul 18, 2017 LIPID PANEL Jul 18, 2017 No Charge Jul 18, 2017 TRICHOMONAS ASSAY W/OPTIC Jul 18, 2017 Bacterial Vaginosis In House Jul 18, 2017 INSTRUCTIONS MEDICATIONS ADMINISTERED No Known Medications
--- OUTSIDE RECORDS SUMMARY | 2018-08-17 03:13 | XMS REPORT ---
Author Author KLEBER SUBRAMANIAN [facility] Address [address] [place] [address] Care Team Providers Care Debeaker Name Role Phone KLEBER SUBRAMANIAN Unavailable PROBLEMS Unknown Problems ALLERGIES No Information ENCOUNTERS Encounter Location Date Diagnosis [facility] [id number] [place] [address]91- 6791 May, [place] [id number] [place] [address] 60228- 1628 Apr, Encounter for supervision of normal in second trimester Z34.92 [place] [id number] [place] [address] 98789- 4568 Apr, [facility] [id number] [place] [address] 93293- 4758 Mar, Normal , first Z34.00 [facility] [id number] [place] [address] 70068- 2898 February, [facility] [id number] [place] [address] 28318- 3184 February, Normal , first Z34.00 [facility] [id number] [place] [address] 02499- 1375 Jan, Encounter for test, result unknown Z32.00 [place] [id number] [place] [address] 25365- 1432 19 Jun, 2017 General medical exam Z00.00 ; Routine gynecological examination Z01.419 ; History of UTI Z87.440 and Vaginal discharge N89.8 [place] [id number] [address] May, [facility] [id number] [address] 17 May, 2017 Lower abdominal pain R10.30 ; Vaginal discharge N89.8 and Acute cystitis with hematuria N30.01 [facility] [address] [address] 16 May, 2017 [facility] [id number] [place] [address] 10531- 9933 14 Jan, 2015 [facility] [id number] [place] [address] 42978- 6604 13 Jan, 2015 [facility] [id number] [place] [address] 75503- 0092 Jul, [facility] [id number] [place] [address] 21142- 3446 Jul, [facility] [id number] [place] [address] 16061- 0581 16 Sep, 2013 [facility] [address], [place] [address] 16 Sep, 2013 [facility] [id number] [place] [address] 86977- 4669 Sep, [facility] [address] [address] Sep, [facility] [address] [address] 0[address] 09 Sep, 2013 [facility] [address] [address] 16[address] 07 Sep, 2013 [facility] [id number] [place] [address] 16552- 3547 06 Sep, 2013 [facility] [address] [address] 03 Sep, 2013 [facility] [address] [address] 03 Sep, 2013 [facility] [address] [facility] [id number] [address] Aug, [facility] [id number] [address] 2546 Aug, [facility] [id number] [address] Aug, [facility] [id number] [address] Jul, [facility] [id number] [address] Jul, [facility] [id number] [address] 2546 Jun, IMMUNIZATIONS No Known Immunizations SOCIAL HISTORY Never Assessed REASON FOR VISIT test (walk-in) PLAN OF CARE VITAL SIGNS MEDICATIONS Unknown Medications RESULTS Name Result Date Reference Range TEST, URINE (IN HOUSE) 2018-02-23 RESULTS Positive Lot # [id number] Control + Exp date 04/2019 PROCEDURES Procedure Date Ordered Result Body Site URINE TEST February 23, 2018 INSTRUCTIONS MEDICATIONS ADMINISTERED No Known Medications
--- OUTSIDE RECORDS SUMMARY | 2018-08-17 03:14 | XMS REPORT | Continuity of Care Document ---
Author Author [facility] Address Unknown Phone Unavailable Allergies Active Description Code Type Severity Reaction Onset Reported/Identified Relationship to Patient Clinical Status Yes codeine Drug Allergy N/A N/A 07/25/2013 Medications There is no data. Problems Date Dx Coded Attending Type Code Diagnosis Diagnosed By 07/25/2013 KLEBER SUBRAMANIAN DO 564.00 CONSTIPATION 07/25/2013 KLEBER SUBRAMANIAN DO 578.1 BLOOD IN STOOL 07/25/2013 KLEBER SUBRAMANIAN DO 564.00 CONSTIPATION 07/25/2013 KLEBER SUBRAMAINAN DO 578.1 BLOOD IN STOOL 07/25/2013 THAIS BEGUM MD 564.00 CONSTIPATION 07/25/2013 THAIS BEGUM MD 578.1 BLOOD IN STOOL 07/25/2013 ELLIOTT STROUD APRN A 564.00 CONSTIPATION 07/25/2013 ELLIOTT STROUD APRN 578.1 BLOOD IN STOOL 07/25/2013 GINA SUAREZ APRN R 564.00 CONSTIPATION 07/25/2013 GINA SUAREZ APRN R 578.1 BLOOD IN STOOL 08/02/2013 KLEBER SUBRAMANIAN DO K 783.21 LOSS OF WEIGHT 08/02/2013 THAIS BEGUM MD 783.21 LOSS OF WEIGHT 08/02/2013 ELLIOTT STROUD APRN A 783.21 LOSS OF WEIGHT 08/02/2013 SAMREEN SUAREZ APRNINA R 783.21 LOSS OF WEIGHT 09/24/2013 THAIS BEGUM MD 786.2 COUGH 09/24/2013 ELLIOTT STROUD APRN 786.2 COUGH 09/24/2013 GINA SUAREZ APRN R 786.2 COUGH 10/01/2013 ELLIOTT STROUD APRN 682.5 CELLULITIS AND ABSCESS OF BUTTOCK 10/01/2013 ELLIOTT STROUD APRN V65.42 COUNSELING - SMOKING CESSATION 10/01/2013 ELLIOTT STROUD APRN V74.5 STD SCREEN 10/01/2013 ELLIOTT STROUD APRN V76.10 BREAST CANCER SCREENING 10/01/2013 ELLIOTT STROUD APRN V76.2 CERVICAL CANCER SCREENING (PAP SMEAR) 10/01/2013 GINA SUAREZ APRN 682.5 CELLULITIS AND ABSCESS OF BUTTOCK 10/01/2013 GINA SUAREZ APRN V65.42 COUNSELING - SMOKING CESSATION 10/01/2013 GINA SUAREZ APRN V74.5 STD SCREEN 10/01/2013 GINA SUAREZ APRN V76.10 BREAST CANCER SCREENING 10/01/2013 GINA SUAREZ APRN V76.2 CERVICAL CANCER SCREENING (PAP SMEAR) 08/07/2014 GINA SUAREZ APRN 789.00 ABDOMINAL PAIN UNSPECIFIED SITE 08/14/2018 Ot Z36.89 ENCOUNTER FOR OTHER SPECIFIED 08/14/2018 Ot Z3A.29 29 WEEKS GESTATION OF Procedures Code [place] [address] ROUTINE VENIPUNCTURE 07/25/2013 21966 UA W/ CULTURE IF INDICATED 07/25/2013 31697 CBC 07/25/2013 93936 CMP 07/25/2013 1786293 GFR CALC (RESULT ONLY) 07/25/2013 29570 ROUTINE VENIPUNCTURE 09/24/2013 82987 PERTUSSIS PCR 09/24/2013 PERTUSSIS PERTUSSIS BORDETELLA ANTIBODY IGG IGA 09/24/2013 65560 GC/CHLAM PROBE (STATE) 10/01/2013 86051 PAP SMEAR 10/01/2013 Q0091 PAP SMEAR OBTAIN SMEAR 10/01/2013 40506 TRICHOMONAS (IN-HOUSE) 10/01/2013 46025 CULTURE UROGENITAL 10/03/2013 Results Test Result Range Urine Culture, Routine - 06/15/17 19:34 Urine Culture, Routine Note Genital Culture, Routine - 06/15/17 19:34 Genital Culture, Routine Note Genital Culture, Routine - 07/18/17 16:43 Genital Culture, Routine Note LIPID PANEL - 07/18/17 16:43 Cholesterol, Total 95 mg/dL 100-199 Triglycerides 43 mg/dL 0-149 HDL Cholesterol 52 mg/dL >39 VLDL Cholesterol Roddy 9 mg/dL 5-40 LDL Cholesterol Calc 34 mg/dL 0-99 CULTURE, GENITAL - 07/18/17 16:43 Genital Culture, Routine Final report NRG Result 1 NRG CBC With Differential/Platelet - 07/18/17 16:43 WBC 5.8 x10E3/uL 3.4-10.8 RBC 4.04 x10E6/uL 3.77-5.28 Hemoglobin 13.0 g/dL 11.1-15.9 Hematocrit 39.9 % 34.0-46.6 MCV 99 fL 79-97 MCH 32.2 pg 26.6-33.0 MCHC 32.6 g/dL 31.5-35.7 RDW 12.8 % 12.3-15.4 Platelets 276 x10E3/uL 150-379 Neutrophils 68 % Lymphs 23 % Monocytes 9 % Eos 0 % Basos 0 % Neutrophils (Absolute) 3.9 x10E3/uL 1.4-7.0 Lymphs (Absolute) 1.3 x10E3/uL 0.7-3.1 Monocytes(Absolute) 0.5 x10E3/uL 0.1-0.9 Eos (Absolute) 0.0 x10E3/uL 0.0-0.4 Baso (Absolute) 0.0 x10E3/uL 0.0-0.2 Immature Granulocytes 0 % Immature Grans (Abs) 0.0 x10E3/uL 0.0-0.1 Comp. Metabolic Panel (14) - 07/18/17 16:43 Glucose, Serum 83 mg/dL 65-99 BUN 7 mg/dL 6-20 Creatinine, Serum 0.74 mg/dL 0.57-1.00 eGFR If NonAfricn Am 113 mL/min/1.73 >59 eGFR If Africn Am 130 mL/min/1.73 >59 BUN/Creatinine Ratio 9 9-23 Sodium, Serum 139 mmol/L 134-144 Potassium, Serum 4.0 mmol/L 3.5-5.2 Chloride, Serum 100 mmol/L 96-106 Carbon Dioxide, Total 22 mmol/L 18-29 Calcium, Serum 9.7 mg/dL 8.7-10.2 Protein, Total, Serum 6.8 g/dL 6.0-8.5 Albumin, Serum 4.7 g/dL 3.5-5.5 Globulin, Total 2.1 g/dL 1.5-4.5 A/G Ratio 2.2 1.2-2.2 Bilirubin, Total 0.5 mg/dL 0.0-1.2 Alkaline Phosphatase, S 52 IU/L 39-117 AST (SGOT) 15 IU/L 0-40 ALT (SGPT) 10 IU/L 0-32 Lipid Panel - 07/18/17 16:43 Cholesterol, Total 95 mg/dL 100-199 Triglycerides 43 mg/dL 0-149 HDL Cholesterol 52 mg/dL >39 VLDL Cholesterol Roddy 9 mg/dL 5-40 LDL Cholesterol Calc 34 mg/dL 0-99 TSH - 07/18/17 16:43 TSH 1.390 uIU/mL 0.450-4.500 Pap Lb, rfx HPV ASCU - 07/18/17 16:55 DIAGNOSIS: Comment Specimen adequacy: Comment Clinician provided ICD10: Comment Performed by: Comment . . Note: Comment . Comment PDF Report - 07/18/17 16:55 PDF Report1 LCLS NRG CULTURE, GENITAL - 03/14/18 16:21 CULTURE, GENITAL SEE NOTE NRG CBC - 04/18/18 14:50 WHITE BLOOD CELL COUNT 12.4 Thousand/uL 3.8-10.8 RED BLOOD CELL COUNT 3.49 Million/uL 3.80-5.10 HEMOGLOBIN 11.8 g/dL 11.7-15.5 HEMATOCRIT 34.8 % 35.0-45.0 MCV 99.7 fL 80.0-100.0 MCH 33.8 pg 27.0-33.0 MCHC 33.9 g/dL 32.0-36.0 RDW 11.7 % 11.0-15.0 PLATELET COUNT 251 Thousand/uL 140-400 MPV 11.2 fL 7.5-12.5 ABSOLUTE NEUTROPHILS 9486 cells/uL 2630-3107 ABSOLUTE LYMPHOCYTES 1872 cells/uL 850-3900 ABSOLUTE MONOCYTES 893 cells/uL 200-950 ABSOLUTE EOSINOPHILS 112 cells/uL 15-500 ABSOLUTE BASOPHILS 37 cells/uL 0-200 NEUTROPHILS 76.5 % NRG LYMPHOCYTES 15.1 % NRG MONOCYTES 7.2 % NRG EOSINOPHILS 0.9 % NRG BASOPHILS 0.3 % NRG GLUCOSE SHA 1 HOUR - 07/04/18 16:05 GLUCOSE, POSTPRANDIAL/ 1 HOUR 124 mg/dL See Note: CBC - 07/04/18 16:05 WHITE BLOOD CELL COUNT 18.1 Thousand/uL 3.8-10.8 RED BLOOD CELL COUNT 3.69 Million/uL 3.80-5.10 HEMOGLOBIN 12.0 g/dL 11.7-15.5 HEMATOCRIT 35.5 % 35.0-45.0 MCV 96.2 fL 80.0-100.0 MCH 32.5 pg 27.0-33.0 MCHC 33.8 g/dL 32.0-36.0 RDW 11.8 % 11.0-15.0 PLATELET COUNT 284 Thousand/uL 140-400 MPV 11.5 fL 7.5-12.5 DIFFERENTIAL, MANUAL - 07/04/18 16:05 ABSOLUTE NEUTROPHILS 78929 cells/uL 0571-5280 ABSOLUTE MONOCYTES 1430 cells/uL 200-950 ABSOLUTE EOSINOPHILS 0 cells/uL 15-500 ABSOLUTE BASOPHILS 0 cells/uL 0-200 NEUTROPHILS 79.2 % NRG LYMPHOCYTES 9.9 % NRG MONOCYTES 7.9 % NRG EOSINOPHILS 0 % NRG BASOPHILS 0 % NRG ABSOLUTE BAND NEUTROPHILS 362 cells/uL 0-750 ABSOLUTE METAMYELOCYTES 181 cells/uL ABSOLUTE LYMPHOCYTES 1792 cells/uL 850-3900 BAND NEUTROPHILS 2.0 % NRG METAMYELOCYTES 1.0 % NRG CBC MORPHOLOGY NORMAL NOTE NRG Encounters ACCT No. Visit Date/Time Discharge Status Pt. Type Provider Facility Loc./Unit Complaint [id number] 08/07/2014 09:44:00 08/07/2014 23:59:59 CLS Outpatient GINA SUAREZ APRN [id number] 10/01/2013 15:36:00 10/01/2013 23:59:59 CLS Outpatient ELLIOTT STROUD APRN [id number] 09/24/2013 15:18:00 09/24/2013 23:59:59 CLS Outpatient THAIS BEGUM MD [id number] 08/02/2013 11:44:00 08/02/2013 23:59:59 CLS Outpatient KLEBER SUBRAMANIAN DO [id number] 07/25/2013 10:31:00 07/25/2013 23:59:59 CLS Outpatient KLEBER SUBRAMANIAN DO [id number] 07/21/2017 18:09:00 Document Registration [id number] 06/19/2017 14:08:00 Document Registration [id number] 07/20/2017 17:08:00 Document Registration [id number] 07/25/2018 15:00:00 07/25/2018 23:59:59 CLS Outpatient ALICE ASHER LAC CHCSEPaul [facility] [id number] 07/04/2018 15:30:00 Document Registration [id number] 04/18/2018 14:15:00 Document Registration [id number] 03/14/2018 14:00:00 Document Registration [id number] 07/18/2017 15:40:00 Document Registration [id number] 06/19/2017 14:08:00 Document Registration [id number] 07/19/2017 08:42:00 Document Registration [id number] 08/14/2018 12:31:00 ACT Outpatient THAIS BEGUM MD [facility] RAD POST TERM 40-42 WEEKS OF GESTATION [id number] 05/30/2018 13:01:00 Document Registration
[2018-08-17 04:10] LABS: BASOPHILS % (AUTO) 0 % (0-10); EOSINOPHILS # (AUTO) 0.1 10^3/uL (0.0-0.3); EOSINOPHILS % (AUTO) 1 % (0-10); HEMATOCRIT 30 % (35-52); HEMOGLOBIN 10.3 G/DL (11.5-16.0); LYMPHOCYTES # (AUTO) 2.1 X 10^3 (1.0-4.0); LYMPHOCYTES % (AUTO) 14 % (12-44); MEAN CORPUSCULAR HEMOGLOBIN 33 PG (25-34); MEAN CORPUSCULAR HGB CONC 34 G/DL (32-36); MEAN CORPUSCULAR VOLUME 96 FL (80-99); MEAN PLATELET VOLUME 11.3 FL (7.4-10.4); MONOCYTES # (AUTO) 1.8 X 10^3 (0.0-1.0); MONOCYTES % (AUTO) 12 % (0-12); NEUTROPHILS # (AUTO) 11.2 X 10^3 (1.8-7.8); NEUTROPHILS % (AUTO) 74 % (42-75); PLATELET COUNT 285 10^3/uL (130-400); RED BLOOD COUNT 3.13 10^6/uL (4.35-5.85); RED CELL DISTRIBUTION WIDTH 13.9 % (10.0-14.5); WHITE BLOOD COUNT 15.2 10^3/uL (4.3-11.0)
[2018-08-17] MEDS ORDERED: CATHETER FLUSH 10 ML SYR IV SCH ×2 (06:00→22:00)
[2018-08-17] MEDS ORDERED: OXYTOCIN/NORMAL SALINE 500 ML IV ONE (07:16)
--- NOTE | 2018-08-17 07:21 | History & Physical-OB ---
OB - Chief Complaint & HPI Date/Time Date of Admission: Date of Admission: Aug 17, 2018 at 02:50 Date seen by a Provider: Aug 17, 2018 Time Seen by a Provider: 07:15 Chief Complaint/History OB-Reason for Admission/Chief: Rupture of Membranes Hx : 1 Hx Para: 0 Expected Date of Delivery: Aug 11, 2018 Gestational Age in Weeks: 40 Gestational Age in Days: 6 Admission Nurse Assessment Rev: Yes History of Labs GBS positive Allergies and Home Medications Allergies Coded Allergies: codeine (Verified Allergy, Unknown, 08/17/18) Home Medications Omeprazole 10 Mg Capsule.dr, 10 MG PO DAILY PRN, (Reported) Vit No.124/Iron/FA 1 Each Tablet, 1 EACH PO DAILY, (Reported) Patient Home Medication List Home Medication List Reviewed: Yes OB - History Hx of Present Care: Yes Ultrasounds: Normal mid trimester US Obstetrical Complications: None Medical Complications: None Obstetrical History Hx : 1 Hx Para: 0 Hx Total # of Abortions (Spona: 0 Patient Past Medical History no chronic medical problems Social History/Family History Recent Infectious Disease Expo: No Alcohol Use: Denies Use Recreational Drug Use: No OB - Admission Exam Physical Exam Vitals: Vital Signs 08/17/18 02:44 Temp 98.4 Pulse 122 Resp 18 B/P (MAP) 130/73 (92) O2 Delivery Room Air HEENT: Moist Membranes Heart: Rhythm Normal Lungs: Clear Abdomen: Gravid Cervical Dilatation: 1cm Effacement: 75% Station: -2 Membranes: Ruptured Amniotic Fluid: Clear Heart Rate: 140's Accelerations: Accelerations Present Decelerations: No Decelerations Short Term Variability: Present Usp Variability: Average (6-25) Contractions on Admission: 6-10 Minutes Apart Intensity: Mild Labs Laboratory Tests Test 08/17/18 04:00 Range/Units White Blood Count 15.2 H 4.3-11.0 10^3/uL Red Blood Count 3.13 L 4.35-5.85 10^6/uL Hemoglobin 10.3 L 11.5-16.0 G/DL Hematocrit 30 L 35-52 % Mean Corpuscular Volume 96 80-99 FL Mean Corpuscular Hemoglobin 33 25-34 PG Mean Corpuscular Hemoglobin Concent 34 32-36 G/DL Red Cell Distribution Width 13.9 10.0-14.5 % Platelet Count 285 130-400 10^3/uL Mean Platelet Volume 11.3 H 7.4-10.4 FL Neutrophils (%) (Auto) 74 42-75 % Lymphocytes (%) (Auto) 14 12-44 % Monocytes (%) (Auto) 12 0-12 % Eosinophils (%) (Auto) 1 0-10 % Basophils (%) (Auto) 0 0-10 % Neutrophils # (Auto) 11.2 H 1.8-7.8 X 10^3 Lymphocytes # (Auto) 2.1 1.0-4.0 X 10^3 Monocytes # (Auto) 1.8 H 0.0-1.0 X 10^3 Eosinophils # (Auto) 0.1 0.0-0.3 10^3/uL Basophils # (Auto) 0.0 0.0-0.1 10^3/uL OB - Assessment/Plan/Diagnosis Assessment Assessment: rupture of membranes (at 40w6d) Admission Dx IUP at 40w6d gestation in labor Admission Status: Inpatient Order (span 2 midnights) Reason for Inpatient Admission: L&D Plan Plan: Expectant Management Other Plan -pitocin as needed -epidural [facility] CHICA ALVAREZ MD Aug 17, 2018 07:21
[2018-08-17] MEDS ORDERED: OXYTOCIN/NORMAL SALINE 500 ML IV SCH ×2 (07:22→18:19)
[2018-08-17] MEDS: AMPICILLIN FOR IV USE 1,000 MG in NS (IVPB) 50 ML IV SCH ×3 (07:37→15:14)
[2018-08-17] MEDS ORDERED: FLU QUADRIvalent (5+ YOA) 2018-2019 (AFLURIA) 0.5 ML IM ONE (08:00)
[2018-08-17] MEDS ORDERED: SUFENTA 0.6MCG/ML BUPIVA 0.125 100 ML ONE (08:04)
[2018-08-17] MEDS ORDERED: fentaNYL INJECTION 100 MCG/2 ML AMP ONE ×2 (08:10→17:57)
[2018-08-17] MEDS ORDERED: BUPIVACAINE 0.25% 30 ML (SENSORCAINE) VIAL ONE (08:10)
[2018-08-17] MEDS ORDERED: LACTATED RINGERS 1,000 ML IV SCH (08:43)
[2018-08-17] MEDS ORDERED: METOCLOPRAMIDE INJ 10 MG/2 ML (REGLAN) IV PRN (08:45)
[2018-08-17] MEDS ORDERED: EPIDURAL (SUFENTA 0.6MCG/ML BUPIVA 0.125%) 100 ML BAG EPI PRN (08:45)
[2018-08-17] MEDS ORDERED: ONDANSETRON 4 MG/2 ML (SDV) Z0FRAN IV PRN (08:45)
[2018-08-17] MEDS ORDERED: NALOXONE 0.4 MG/ML 1 ML (NARCAN) VIAL IV PRN ×2 (08:45)
[2018-08-17] MEDS ORDERED: diphenhydrAMINE 50 MG/ML INJ (BENADRYL) IV PRN (08:45)
--- NOTE | 2018-08-17 11:39 | Progress Note (SOAP) ---
Subjective Subjective/Events-last exam Patient in labor. Pitocin at 10. Epidural in place and patient is resting comfortably. Review of Systems Date Seen by Provider: Aug 17, 2018 Time Seen by Provider: 11:30 Objective Exam Last Set of Vital Signs Vital Signs Date Time Temp Pulse Resp B/P (MAP) Pulse Ox O2 Delivery O2 Flow Rate FiO2 08/17/18 10:40 90 18 119/81 (94) 99 Room Air 08/17/18 09:35 98.3 Capillary Refill : General: No Acute Distress Other physical findings Cervix 2cm, 90% effaced, -2 station Results/Procedures Lab Laboratory Tests 08/17/18 04:00: White Blood Count 15.2H, Red Blood Count 3.13L, Hemoglobin 10.3L, Hematocrit 30L , Mean Corpuscular Volume 96, Mean Corpuscular Hemoglobin 33, Mean Corpuscular Hemoglobin Concent 34, Red Cell Distribution Width 13.9, Platelet Count 285, Mean Platelet Volume 11.3H, Neutrophils (%) (Auto) 74, Lymphocytes (%) (Auto) 14 , Monocytes (%) (Auto) 12, Eosinophils (%) (Auto) 1, Basophils (%) (Auto) 0, Neutrophils # (Auto) 11.2H, Lymphocytes # (Auto) 2.1, Monocytes # (Auto) 1.8H, Eosinophils # (Auto) 0.1, Basophils # (Auto) 0.0 Assessment/Plan Assessment/Plan Assessment & Plan 1. IUP at 40w6d in labor -continue with pit at 10 for now -Care turned over to [facility] (Dr Ramirez notified) Clinical Quality Measures DVT/VTE Risk/Contraindication: Risk Factor Score Per Nursin RFS Level Per Nursing on Admit: 1=Low/No VTE PPX CHICA ALVAREZ MD Aug 17, 2018 11:39
[2018-08-17] MEDS ORDERED: D5W IV NR (17:15)
[2018-08-17] MEDS ORDERED: GENTAMICIN IV NR (17:15)
[2018-08-17] MEDS ORDERED: ACETAMINOPHEN 500 MG TAB (TYLENOL) PO ONE (17:30)
[2018-08-17] MEDS ORDERED: ceFAZolin 2 GM IV Premixed 50 ML ONE (17:54)
[2018-08-17] MEDS ORDERED: ceFAZolin 2 GM IV Premixed 50 ML IV NR (18:00)
[2018-08-17] MEDS ORDERED: CITRIC ACID/SOB CIT (BICITRA) 30 ML UDC PO ONE (18:00)
[2018-08-17] MEDS ORDERED: METOCLOPRAMIDE INJ 10 MG/2 ML (REGLAN) IV ONE (18:00)
[2018-08-17] MEDS ORDERED: FAMOTIDINE 20MG/2ML IV (PEPCID) IV ONE (18:00)
[2018-08-17] MEDS ORDERED: CATHETER FLUSH 10 ML SYR IV PRN (18:00)
[2018-08-17] MEDS ORDERED: KETAMINE HCL 100 MG/ML 5 ML VIAL ONE (18:01)
--- NOTE | 2018-08-17 18:21 | Progress Note-Standard ---
Standard Progress Note Progress Notes/Assess & Plan Date Seen by a Provider: Aug 17, 2018 Time Seen by a Provider: 18:10 Progress/Assessment & Plan This 27-year-old female was admitted by Dr. Sanderson due to spontaneous rupture membranes and spontaneous labor at 40 weeks gestation. Throughout the day today she has not made much progress in cervical dilatation, she was augmented adequately however did not progress beyond 3 cm dilatation. She began to spike temperatures of 102, gentamicin was given by the family practice provider, I was contacted for delivery due to failure to progress as well as this being complicated by suspected chorioamnionitis and persistent tachycardia. I discussed with the patient the indications for all of her questions were answered retained a risk involved and the procedure with her family present. Consent was obtained patient to the operating room PHILIP PARSONS DO Aug 17, 2018 18:21
--- NOTE | 2018-08-17 18:24 | Discharge Inst-Women's Service ---
Discharge Inst-Women's Serv Depart Medication/Instructions New, Converted or Re-Newed RX: RX on Chart Consults/Follow Up Additional Follow Up: Yes Orders/Referrals Dr. Dominique in 7-[address] Sanderson in 6 weeks Activity Activity: Activity as Tolerated Driving Instructions: No Driving for 1 Week NO SMOKING: NO SMOKING Nothing Inside Vagina: No Douching, No [place], No Tampons Diet Discharge Diet: No Restrictions Symptoms to Report to : Bleeding Excessive, Pain Increased, Fever Over 101 Degrees F, Vaginal Bleeding Increase, Questions/Concerns For Any Problems or Questions: Contact Your Physician Skin/Wound Care Infection Signs and Symptoms: Increased Redness, Foul Odor of Wound, Increased Drainage, Skin Itchy or Has a Rash, Increased Swelling, Temperature Above 101 F Operative Area Clean and Dry: Keep Incision Clean/Dry Stitches/Boyce/Dermabond: Dermabond, Care of Stitches Bathing Instructions: PHILIP Bella DO Aug 17, 2018 18:24
[2018-08-17] MEDS ORDERED: IBUP-844 PO (18:25)
[2018-08-17] MEDS ORDERED: DOCU100C37 PO (18:25)
[2018-08-17] MEDS ORDERED: ACHD5005 PO (18:25)
[2018-08-17] MEDS ORDERED: TETANUS,DIPTH,PERTUSS P/F (BOOSTRIX) 0.5 ML VIAL IM SCH (18:30)
[2018-08-17] MEDS ORDERED: HYDROmorphone 2 MG/ML VIAL (DILAUDID) IV PRN (18:30)
[2018-08-17] MEDS ORDERED: MEASLES,MUMPS,RUBELLA 1 EA INJ SC SCH (18:30)
[2018-08-17] MEDS ORDERED: ONDANSETRON 4 MG/2 ML (SDV) Z0FRAN IVP PRN ×2 (18:30→19:45)
[2018-08-17] MEDS ORDERED: CARBOPROST (HEMABATE) 250 MCG/ML AMP IM ONE (18:43)
[2018-08-17] MEDS ORDERED: KETOROLAC 30 MG/ML VIAL ONE (18:49)
[2018-08-17] MEDS ORDERED: METHYLERGONOVINE 0.2 MG/ML (METHERGINE) AMP ONE (18:49)
[2018-08-17] MEDS ORDERED: LIDOCAINE PF 2% 5 ML (XYLOCAINE) VIAL ONE (19:10)
[2018-08-17] MEDS ORDERED: BUPIVACAINE 0.5% 30 ML (SENSORCAINE) VIAL ONE (19:10)
[2018-08-17] MEDS ORDERED: morphine INJ 10 MG/ML 1ML (SYR OR VIAL) ONE (19:20)
[2018-08-17] MEDS ORDERED: morphine INJ 10 MG/ML 1ML (SYR OR VIAL) IVP ONE ×2 (19:45)
[2018-08-17] MEDS: DOCUSATE SODIUM 100 MG (COLACE) CAP PO SCH (20:48)
[2018-08-17] MEDS: HYDROcodone/APAP 5 MG/325 MG (LORTAB) TAB PO PRN (21:19)
[2018-08-18] MEDS: KETOROLAC 30 MG/ML VIAL IVP SCH ×2 (01:47→08:27)
[2018-08-18 01:55] VITALS: BP 97/57
--- NOTE | 2018-08-18 02:44 | OPERATIVE REPORT ---
DATE OF SERVICE: PREOPERATIVE DIAGNOSES: 1. A 27-year-old G1, P0 at 40 weeks gestation. 2. Failure to progress. 3. Prolonged tachycardia. 4. Chorioamnionitis. POSTOPERATIVE DIAGNOSES: 1. A 27-year-old G1, P0 at 40 weeks gestation. 2. Failure to progress. 3. Prolonged tachycardia. 4. Chorioamnionitis. PROCEDURE: Primary low transverse section. SURGEON: Sukh Dominique DO ANESTHESIA: Epidural, which was bolused. ESTIMATED BLOOD LOSS: 800 mL. URINE OUTPUT: 750 mL clear at the end of the procedure. FLUIDS: 1200 mL lactate Ringer's solution. FINDINGS: A live female infant, weight pending. Apgars of 1, 1 and 2. Grossly normal appearing uterus, bilateral fallopian tubes and ovaries with uterine atony, addressed intraoperatively. SPECIMENS SENT: Placenta. INDICATIONS FOR PROCEDURE: This 27-year-old female patient was admitted by the [facility]. Dr. Sanderson admitted the patient followed by Dr. Ramirez managing her care throughout the day. She came in with spontaneous rupture of membranes approximately 2 to 3 a.m. yesterday morning. She was augmented with Pitocin and her labor progressed only to 3 cm dilatation throughout the day today. She received an epidural. She was also noted to be GBS positive and received several doses of ampicillin during her admission time. Approximately 4 to 5 o'clock this afternoon, I was notified that she was not progressing and there was indication that the patient's temperature was possibly going up. I was told that the temperature was in the 99s to 100s, but not technically a fever yet. heart tones remained stable at that point. About an hour after this, I was consulted due to acute change in heart tones tachycardia as high as 170s to 180s as well as maternal temperature of 102. She was dosed with gentamicin and I was consulted for . I presented to discuss the patient's indication for was failure to progress; however, I also discussed with the patient the possibility of chorioamnionitis due to the temperature. She was dosed with 2 grams of Ancef as well preoperatively for infection prophylaxis. At that point, all the patient's questions were answered with family present pertaining to the procedure itself. DESCRIPTION OF PROCEDURE: The patient was taken to the operating room. OPERATIVE REPORT IN DETAIL: Once in the operating room, epidural analgesia was bolused and found to be adequate. She was placed in supine position with leftward tilt, prepped and draped in normal sterile fashion. A timeout was performed. A Pfannenstiel skin incision was then made with a knife, carried down to the underlying fascia using Bovie cautery. Fascial incision extended laterally using Bovie cautery. Superior aspect of the fascial incision was then grasped with Christina clamps, tented up and dissected off the underlying rectus muscles. The inferior aspect of the fascial incision was then grasped with Christina clamps, tented up and dissected off the underlying rectus muscles. The rectus muscles were then dissected down the midline using Metzenbaum scissors, which exposed the peritoneum, which I entered bluntly and extended using blunt traction. An Nader ring retractor was placed in the peritoneal incision, which offered excellent lateral sidewall retraction. I then identified the lower uterine segment, which was found to be thinned out. There was a noted warmth to the mother as well during the dissection process. I made a low transverse incision into the uterus using the knife and bluntly dissected the vesicouterine peritoneum off the lower uterine segment. I proceeded to myotomy until membranes were visualized, at which point I extended the uterine incision laterally and superiorly using bandage scissors. Amniotomy had already occurred in this process. The infant was found in the vertex presentation. With gentle fundal pressure, the 's head was delivered through the incision where the nose and oropharynx were then bulb suctioned. Anterior and posterior shoulders were delivered. The was then brought to the operative field where the cord was doubly clamped and cut, and the infant was handed off to Dr. Ballard, who was present for delivery. Cord blood was collected. I attempted to collect cord gases as well. However, I was unsuccessful in doing so due to collapse of the vessels. Three-vessel cord was intact. Placenta was delivered spontaneously thereafter. IV Pitocin was initiated to facilitate uterine contraction. Uterine fundus remained boggy; however, I do exteriorize the uterus and cleared of all endometrial clots and debris. I have anesthesia give 0.2 mg of Methergine IM and I proceeded with closing the uterine incision using 0 Vicryl suture in a running locked fashion. A second layer of imbricating 0 Monocryl was placed and excellent hemostasis was noted from the incision. After doing this; however, there is significant uterine atony still recognized. At this point, I will go ahead and have anesthesia give 250 mcg of Hemabate and perform a B-Knight compression suture using 0 Monocryl after which there was good uterine compression noted and there was an increase in uterine tone as well. I then placed the uterus back in the pelvis, which after I done this, I copiously irrigated the pelvis using normal saline. There was no active bleeding noted from any of my dissection planes. To ensure excellent postoperative hemostasis, I placed Surgicel over my uterine incision and then covered this with Interceed as well for prevention of adhesions. I then proceeded with closing the peritoneum using 3-0 Vicryl suture in a running fashion. The rectus muscles were reapproximated using 3-0 Vicryl suture in interrupted fashion. The fascia was reapproximated using 0 Vicryl suture in running fashion. The subcutaneous tissue was reapproximated using 3-0 plain in interrupted subcutaneous stitch and the skin was reapproximated using 4-0 Monocryl in a running subcuticular. Dermabond was applied to incision and a sterile dressing with adhesive white tape. The patient tolerated the procedure well and was taken to the recovery area in stable condition. Lap and sponge counts were correct at the end of the procedure. Instrument counts correct as well. Job ID: [id number] DocumentID: [id number] Dictated Date: 08/17/2018 19:54:31 Direct Mail Manager Date: 08/18/2018 02:43:46 Dictated By: SUKH DOMINIQUE DO
[2018-08-18] MEDS ORDERED: ceFAZolin 2 GM IV Premixed 50 ML IV ONE (03:00)
[2018-08-18] MEDS: HYDROcodone/APAP 5 MG/325 MG (LORTAB) TAB PO PRN ×4 (03:34→20:39)
[2018-08-18 06:45] VITALS: BP 109/68
[2018-08-18 06:56] LABS: BASOPHILS % (AUTO) 0 % (0-10); EOSINOPHILS # (AUTO) 0.1 10^3/uL (0.0-0.3); EOSINOPHILS % (AUTO) 0 % (0-10); HEMATOCRIT 21 % (35-52); LYMPHOCYTES # (AUTO) 1.4 X 10^3 (1.0-4.0); LYMPHOCYTES % (AUTO) 6 % (12-44); MEAN CORPUSCULAR HEMOGLOBIN 31 PG (25-34); MEAN CORPUSCULAR HGB CONC 32 G/DL (32-36); MEAN CORPUSCULAR VOLUME 96 FL (80-99); MEAN PLATELET VOLUME 10.7 FL (7.4-10.4); MONOCYTES # (AUTO) 1.7 X 10^3 (0.0-1.0); MONOCYTES % (AUTO) 7 % (0-12); NEUTROPHILS # (AUTO) 19.9 X 10^3 (1.8-7.8); NEUTROPHILS % (AUTO) 87 % (42-75); PLATELET COUNT 207 10^3/uL (130-400); RED BLOOD COUNT 2.23 10^6/uL (4.35-5.85); RED CELL DISTRIBUTION WIDTH 14.1 % (10.0-14.5); WHITE BLOOD COUNT 22.9 10^3/uL (4.3-11.0)
[2018-08-18 08:00] VITALS: BP 104/73
[2018-08-18] MEDS: DOCUSATE SODIUM 100 MG (COLACE) CAP PO SCH ×2 (08:26→20:42)
--- NOTE | 2018-08-18 09:07 | Anesthesia-Regional Post-Op ---
Regional Patient Condition Mental Status: Alert, Oriented x3 Circulation: Same as Pre-Op Headache: Absent Sensation: Full Recovery Motor Block: Absent Post Op Complications Complications None Follow Up Care/Instructions Patient Instructions None needed. Anesthesia/Patient Condition Patient is doing well, no complaints, stable vital signs, no apparent adverse anesthesia problems. No complications reported per nursing. COLE HIGUERA CRNA Aug 18, 2018 09:07
--- NOTE | 2018-08-18 11:56 | Postpartum Progress Note ---
Note Note Day # 1 Subjective: Patient is without complaints. Ambulating, voiding. Tolerating a regular diet without nausea or vomiting. Normal lochia. Pain is well controlled with oral pain medications. transferred to [place]. Objective: Vital Sign - Last 24 Hours 08/17/18 08/17/18 08/17/18 08/17/18 12:08 12:22 12:38 12:53 Pulse 98 93 115 88 Resp 18 18 18 18 B/P (MAP) 108/69 (82) 105/60 (75) 124/78 (93) 119/79 (92) O2 Delivery Room Air Room Air Room Air Room Air 08/17/18 08/17/18 08/17/18 08/17/18 13:08 13:23 13:38 13:53 Temp 99.7 Pulse 90 100 100 100 Resp 18 18 18 18 B/P (MAP) 120/81 (94) 118/73 (88) 119/70 (86) 152/80 (104) O2 Delivery Room Air Room Air Room Air Room Air 08/17/18 08/17/18 08/17/18 08/17/18 14:08 14:23 14:38 14:53 Pulse 96 96 95 92 Resp 18 18 18 18 B/P (MAP) 111/74 (86) 128/76 (93) 124/75 (91) 130/75 (93) O2 Delivery Room Air Room Air Room Air Room Air 08/17/18 08/17/18 08/17/18 08/17/18 15:00 15:23 15:38 15:53 Temp 101.1 100.8 Pulse 102 100 Resp 18 18 B/P (MAP) 121/61 (81) 120/68 (85) O2 Delivery Room Air Room Air 08/17/18 08/17/18 08/17/18 08/17/18 15:53 16:08 16:23 16:38 Temp 101.2 Pulse 113 96 90 98 Resp 18 18 18 18 B/P (MAP) 122/77 (92) 118/64 (82) 107/58 (74) 111/60 (77) O2 Delivery Room Air Room Air Room Air Room Air 08/17/18 08/17/18 08/17/18 08/17/18 16:53 17:23 17:38 17:53 Temp 101.4 102.6 Pulse 96 104 103 99 Resp 18 18 18 18 B/P (MAP) 109/57 (74) 126/67 (86) 122/70 (87) 106/58 (74) O2 Delivery Room Air Room Air Room Air Room Air 08/17/18 08/17/18 08/17/18 08/18/18 18:08 21:30 22:00 00:17 Temp 98.8 98.6 Pulse 131 83 73 Resp 18 16 16 B/P (MAP) 140/66 (90) 110/69 (83) 114/70 (85) Pulse Ox 96 98 O2 Delivery Room Air Room Air Room Air Room Air 08/18/18 08/18/18 08/18/18 01:55 06:45 08:00 Temp 98.8 98.1 98.2 Pulse 99 96 125 Resp 16 18 20 B/P (MAP) 97/57 (70) 109/68 (82) 104/73 (83) Pulse Ox 98 97 99 O2 Delivery Room Air Room Air Room Air Intake and Output 08/17/18 08/17/18 08/18/18 15:00 23:00 07:00 Intake Total 2120 ml 2010 ml 850 ml Output Total 850 ml 2650 ml Balance 2120 ml 1160 ml -1800 ml Physical Exam: General - Alert and oriented, no apparent distress Abdomen - Soft, appropriately tender to palpation, non-distended, fundus firm at umbilicus Extremities - no edema, negative Ju's bilaterally Incision- c/d/i Assessment: POD 1 PLTCS Acute chorioamnionitis Acute blood loss anemia Plan: Routine care. Encourage breast feeding. Encourage ambulation. Ferrous sulfate supplementation. Plan for discharge tomorrow pending progression Vitals - Labs Vital Signs - I&O Vital Signs Date Time Temp Pulse Resp B/P (MAP) Pulse Ox O2 Delivery O2 Flow Rate FiO2 08/18/18 08:00 98.2 125 20 104/73 (83) 99 Room Air 08/18/18 06:45 98.1 96 18 109/68 (82) 97 Room Air 08/18/18 01:55 98.8 99 16 97/57 (70) 98 Room Air 08/18/18 00:17 Room Air 08/17/18 22:00 98.6 73 16 114/70 (85) 98 Room Air 08/17/18 21:30 98.8 83 16 110/69 (83) 96 Room Air 08/17/18 18:08 131 18 140/66 (90) Room Air 08/17/18 17:53 99 18 106/58 (74) Room Air 08/17/18 17:38 102.6 103 18 122/70 (87) Room Air 08/17/18 17:23 104 18 126/67 (86) Room Air 08/17/18 16:53 101.4 96 18 109/57 (74) Room Air 08/17/18 16:38 98 18 111/60 (77) Room Air 08/17/18 16:23 90 18 107/58 (74) Room Air 08/17/18 16:08 96 18 118/64 (82) Room Air 08/17/18 15:53 101.2 113 18 122/77 (92) Room Air 08/17/18 15:53 100.8 08/17/18 15:38 100 18 120/68 (85) Room Air 08/17/18 15:23 102 18 121/61 (81) Room Air 08/17/18 15:00 101.1 08/17/18 14:53 92 18 130/75 (93) Room Air 08/17/18 14:38 95 18 124/75 (91) Room Air 08/17/18 14:23 96 18 128/76 (93) Room Air 08/17/18 14:08 96 18 111/74 (86) Room Air 08/17/18 13:53 100 18 152/80 (104) Room Air 08/17/18 13:38 99.7 100 18 119/70 (86) Room Air 08/17/18 13:23 100 18 118/73 (88) Room Air 08/17/18 13:08 90 18 120/81 (94) Room Air 08/17/18 12:53 88 18 119/79 (92) Room Air 08/17/18 12:38 115 18 124/78 (93) Room Air 08/17/18 12:22 93 18 105/60 (75) Room Air 08/17/18 12:08 98 18 108/69 (82) Room Air 08/17/18 11:55 99.7 86 18 132/73 (92) Room Air I & O 08/18/18 07:00 Intake Total 4980 ml Output Total 3500 ml Balance 1480 ml Labs Laboratory Tests 08/18/18 06:41: White Blood Count 22.9H, Red Blood Count 2.23L, Hemoglobin 7.0L, Hematocrit 21L , Mean Corpuscular Volume 96, Mean Corpuscular Hemoglobin 31, Mean Corpuscular Hemoglobin Concent 32, Red Cell Distribution Width 14.1, Platelet Count 207, Mean Platelet Volume 10.7H, Neutrophils (%) (Auto) 87H, Lymphocytes (%) (Auto) 6L, Monocytes (%) (Auto) 7, Eosinophils (%) (Auto) 0, Basophils (%) (Auto) 0, Neutrophils # (Auto) 19.9H, Lymphocytes # (Auto) 1.4, Monocytes # (Auto) 1.7H, Eosinophils # (Auto) 0.1, Basophils # (Auto) 0.0 PHILIP PARSONS DO Aug 18, 2018 11:56 am
[2018-08-18 12:00] VITALS: BP 109/69
[2018-08-18 16:00] VITALS: BP 92/53
[2018-08-18] MEDS: IBUPROFEN 600 MG (MOTRIN) TAB PO SCH ×2 (18:19→23:59)
[2018-08-18] MEDS: FERROUS SULF 325 MG (IRON) TAB PO SCH (18:20)
[2018-08-18 20:48] VITALS: BP 113/64
[2018-08-19 02:15] VITALS: BP 110/67
[2018-08-19] MEDS: HYDROcodone/APAP 5 MG/325 MG (LORTAB) TAB PO PRN ×2 (02:55→11:03)
[2018-08-19 05:57] LABS: BASOPHILS % (AUTO) 0 % (0-10); EOSINOPHILS # (AUTO) 0.2 10^3/uL (0.0-0.3); EOSINOPHILS % (AUTO) 1 % (0-10); HEMATOCRIT 22 % (35-52); HEMOGLOBIN 7.1 G/DL (11.5-16.0); LYMPHOCYTES # (AUTO) 2.8 X 10^3 (1.0-4.0); LYMPHOCYTES % (AUTO) 12 % (12-44); MEAN CORPUSCULAR HEMOGLOBIN 32 PG (25-34); MEAN CORPUSCULAR HGB CONC 33 G/DL (32-36); MEAN CORPUSCULAR VOLUME 98 FL (80-99); MEAN PLATELET VOLUME 11.4 FL (7.4-10.4); MONOCYTES # (AUTO) 1.6 X 10^3 (0.0-1.0); MONOCYTES % (AUTO) 7 % (0-12); NEUTROPHILS # (AUTO) 18.8 X 10^3 (1.8-7.8); NEUTROPHILS % (AUTO) 80 % (42-75); PLATELET COUNT 260 10^3/uL (130-400); RED BLOOD COUNT 2.21 10^6/uL (4.35-5.85); RED CELL DISTRIBUTION WIDTH 14.6 % (10.0-14.5); WHITE BLOOD COUNT 23.5 10^3/uL (4.3-11.0)
[2018-08-19] MEDS: IBUPROFEN 600 MG (MOTRIN) TAB PO SCH (06:45)
[2018-08-19 08:00] VITALS: BP 100/56
[2018-08-19] MEDS: DOCUSATE SODIUM 100 MG (COLACE) CAP PO SCH (08:37)
[2018-08-19] MEDS: FERROUS SULF 325 MG (IRON) TAB PO SCH (08:37)
[2018-08-19] MEDS ORDERED: AMOX-358 PO (09:42)
[2018-08-19] MEDS ORDERED: CLIN300C3 PO (09:42)
--- NOTE | 2018-08-19 09:45 | Postpartum Progress Note ---
Note Note Day # 2 Subjective: Patient is without complaints. Ambulating, voiding. Tolerating a regular diet without nausea or vomiting. Normal lochia. Pain is well controlled with oral pain medications. transferred to [place] Objective: Vital Sign - Last 24 Hours 08/18/18 08/18/18 08/18/18 08/19/18 12:00 16:00 20:48 02:15 Temp 96.0 97.5 98.1 98.4 Pulse 124 107 106 88 Resp 18 18 18 22 B/P (MAP) 109/69 (82) 92/53 (66) 113/64 (80) 110/67 (81) Pulse Ox 100 98 99 100 O2 Delivery Room Air Room Air Room Air Room Air Intake and Output 08/18/18 08/18/18 08/19/18 15:00 23:00 07:00 Intake Total 1300 ml 750 ml Output Total 1350 ml Balance 1300 ml -600 ml Physical Exam: General - Alert and oriented, no apparent distress Abdomen - Soft, appropriately tender to palpation, non-distended, fundus firm at umbilicus Extremities - no edema, negative Ju's bilaterally Incision- c/d/i Assessment: POD 2 PLTCS Acute chorioamnionitis Acute blood loss anemia Leukocytosis Plan: Routine care. Encourage breast feeding. Encourage ambulation. Ferrous sulfate supplementation. Plan for discharge today Sent home on clindamycin and Augmentin course as patient is anxious to be with Vitals - Labs Vital Signs - I&O Vital Signs Date Time Temp Pulse Resp B/P (MAP) Pulse Ox O2 Delivery O2 Flow Rate FiO2 08/19/18 02:15 98.4 88 22 110/67 (81) 100 Room Air 08/18/18 20:48 98.1 106 18 113/64 (80) 99 Room Air 08/18/18 16:00 97.5 107 18 92/53 (66) 98 Room Air 08/18/18 12:00 96.0 124 18 109/69 (82) 100 Room Air I & O 08/19/18 07:00 Intake Total 2050 ml Output Total 1350 ml Balance 700 ml Labs Laboratory Tests 08/18/18 12:14: 08/19/18 04:52: White Blood Count 23.5H, Red Blood Count 2.21L, Hemoglobin 7.1L, Hematocrit 22L , Mean Corpuscular Volume 98, Mean Corpuscular Hemoglobin 32, Mean Corpuscular Hemoglobin Concent 33, Red Cell Distribution Width 14.6H, Platelet Count 260, Mean Platelet Volume 11.4H, Neutrophils (%) (Auto) 80H, Lymphocytes (%) (Auto) 12, Monocytes (%) (Auto) 7, Eosinophils (%) (Auto) 1, Basophils (%) (Auto) 0, Neutrophils # (Auto) 18.8H, Lymphocytes # (Auto) 2.8, Monocytes # (Auto) 1.6H, Eosinophils # (Auto) 0.2, Basophils # (Auto) 0.0 PHILIP PARSONS DO Aug 19, 2018 09:45
--- NOTE | 2018-08-23 16:07 | Physician Query-Final Dx ---
Final Diagnosis Give Final Diagnosis Please give Final Diagnosis EVAN CHOE Aug 23, 2018 16:07
== END 2018-08-19 13:25 | disposition home or self-care (01) | DRG 787 ==
LOC: WSo 02:27 → LDRP 02:28 → WSo 02:49 → LDRP 02:50
PROVIDERS: ADMIT Family Medicine; ATTEND Family Medicine
PROC: 10D00Z1 Extraction of Products of Conception, Low, Open Approach (ICD-10-PCS; principal; 2018-08-17 18:15)
DX: O41.1230 Chorioamnionitis, third trimester, not applicable or unspecified (principal); O99.03 Anemia complicating the puerperium; D62 Acute posthemorrhagic anemia; O76 Abnormality in fetal heart rate and rhythm complicating labor and delivery; O75.89 Other specified complications of labor and delivery; O99.820 Streptococcus B carrier state complicating pregnancy; Z3A.40 40 weeks gestation of pregnancy; Z37.0 Single live birth
CPT/HCPCS: 36415; 85025; 86703; 86780; 86850; 86900; 86901; 94664; 99212

== ENCOUNTER 2022-09-28 19:03 | Emergency (ER) | payer MEDICAID ==
[~2022-09-28] VITALS: Ht 154 cm; Wt 54.6 kg
[~2022-09-28 19:03] MED LIST changes: -OMEP10CA4 PO; +OMEP10CA5 PO
--- NOTE | 2022-09-28 19:16 | ED GU-Female ---
General Chief Complaint: - Reproductive Stated Complaint: VAGINAL ISSUES Source: patient Exam Limitations: no limitations History of Present Illness Date Seen by Provider: Sep 28, 2022 Time Seen by Provider: 19:08 Initial Comments 32-year-old female presents emergency department today for vaginal irritation, dysuria. She states she is have bacterial vaginosis and UTIs in the past and this feels similar. Fevers or chills. No abdominal pain. No nausea or vomiting. No new sexual partners. Allergies and Home Medications Allergies Coded Allergies: codeine (Verified Allergy, Unknown, 08/17/18) latex (Verified Adverse Reaction, Unknown, 08/17/18) Patient Home Medication List Home Medication List Reviewed: Yes Amoxicillin/Potassium Clav (Augmentin 875-125 Tablet) 1 Each Tablet, 1 EACH PO BID Prescribed by: PHILIP PARSONS on 08/19/18941 Cephalexin (Cephalexin) 500 Mg Tablet, 500 MG PO BID Prescribed by: NETO BUENO MD on 09/28/221944 Clindamycin HCl (Cleocin HCl) 300 Mg Capsule, 300 MG PO BID Prescribed by: PHILIP PARSONS on 08/19/18941 Docusate Sodium (Docusate Sodium) 100 Mg Capsule, 100 MG PO BID PRN for CONS TIPATION-1ST LINE Prescribed by: PHILIP PARSONS on 08/17/181824 Hydrocodone Bit/Acetaminophen (Lortab 5 Mg Tablet) 1 Tab Tab, 1-2 TAB PO Q4H PRN for PAIN-MODERATE Prescribed by: PHILIP PARSONS on 08/17/181824 Ibuprofen (Ibu) 600 Mg Tablet, 600 MG PO Q6H Prescribed by: PHILIP PARSONS on 08/17/181824 Omeprazole (Omeprazole) 10 Mg Capsule.dr, 10 MG PO DAILY PRN, (Reported) Entered as Reported by: BETHANIE KING on 08/17/18300 Vit No.124/Iron/FA ( Vitamin Tablet) 1 Each Tablet, 1 EACH PO DAILY, (Reported) Entered as Reported by: BETHANIE KING on 08/17/18300 Review of Systems Review of Systems Constitutional: no symptoms reported EENTM: no symptoms reported Respiratory: no symptoms reported Cardiovascular: no symptoms reported Gastrointestinal: no symptoms reported Genitourinary: burning Musculoskeletal: no symptoms reported Skin: no symptoms reported Psychiatric/Neurological: No Symptoms Reported Endocrine: No Symptoms Reported Hematologic/Lymphatic: No Symptoms Reported Past Witmtoh-Svoaoo-Bkmoge Hx Patient Social History Tobacco Use?: No Use of E-Cig and/or Vaping dev: No Substance use?: No Alcohol Use?: No Seasonal Allergies Seasonal Allergies: No Past Medical History Surgeries: No Respiratory: No Cardiac: No Neurological: No Genitourinary: No Gastrointestinal: No Musculoskeletal: No Endocrine: No HEENT: No Cancer: No Psychosocial: No Integumentary: No Blood Disorders: No Family Medical History Reviewed Nursing Family Hx Alzheimer's disease PATERNAL GRANDFATHER No Pertinent Family Hx Physical Exam Vital Signs Vital Signs - First Documented 09/28/22 19:16 Temp 35.6 Pulse 86 Resp 14 B/P (MAP) 125/86 (99) Pulse Ox 99 O2 Delivery Room Air Capillary Refill : Height, Weight, BMI Height: 5'1.00" Weight: 171lbs. 0.0oz. 77.219339ep; 32.3 BMI Method: General Appearance: WD/WN, no apparent distress HEENT: normal ENT inspection, pharynx normal Neck: non-tender, supple Cardiovascular: regular rate, rhythm, no edema, no murmur Respiratory: chest non-tender, lungs clear, normal breath sounds, no respiratory distress, no accessory muscle use Gastrointestinal: normal bowel sounds, non tender, soft, no organomegaly Extremities: normal range of motion, non-tender, normal inspection, no pedal edema, no calf tenderness, normal capillary refill Neurologic/Psychiatric: no motor/sensory deficits, alert, oriented x 3 Skin: normal color, warm/dry Progress/Results/Core Measures Suspected Sepsis SIRS Temperature: Pulse: Respiratory Rate: Blood Pressure / Mean: Results/Orders Lab Results Laboratory Tests Test 09/28/22 19:18 Range/Units Urine Color YELLOW Urine Clarity CLEAR Urine pH 6.0 5-9 Urine Specific [place] 1.025 H 1.016-1.022 Urine Protein NEGATIVE NEGATIVE Urine Glucose (UA) NEGATIVE NEGATIVE Urine Ketones NEGATIVE NEGATIVE Urine Nitrite NEGATIVE NEGATIVE Urine Bilirubin NEGATIVE NEGATIVE Urine Urobilinogen 0.2 < = 1.0 MG/DL Urine Leukocyte Esterase NEGATIVE NEGATIVE Urine RBC (Auto) NEGATIVE NEGATIVE Urine RBC NONE /HPF Urine WBC 0-2 /HPF Urine Squamous Epithelial Cells 5-10 /HPF Urine Crystals NONE /LPF Urine Bacteria TRACE /HPF Urine Casts NONE /LPF Urine Mucus NEGATIVE /LPF Urine Culture Indicated NO Urine Test NEGATIVE NEGATIVE My Orders Orders - NETO BUENO DO Ua Culture If Indicated (09/28/22 19:14) Hcg,Qualitative Urine (09/28/22 19:14) Cephalexin Capsule (Keflex Capsule) (09/28/22 19:45) Metronidazole Tablet (Flagyl Tablet) (09/28/22 20:00) Vital Signs/I&O 09/28/22 19:16 Temp 35.6 Pulse 86 Resp 14 B/P (MAP) 125/86 (99) Pulse Ox 99 O2 Delivery Room Air Capillary Refill : Departure Impression Primary Impression: Urinary tract infection Qualified Codes: N30.00 - Acute cystitis without hematuria Additional Impression: Bacterial vaginosis Disposition: HOME, SELF-CARE Condition: Stable Departure-Patient Inst. Referrals: NO,LOCAL PHYSICIAN (PCP/Family) Primary Care Physician Patient Instructions: Urinary Tract Infection, Adult (DC), Bacterial Vaginosis Add. Discharge Instructions: Take antibiotics as prescribed until gone. If your symptoms persist you will need to follow-up with your primary doctor. If you have any severe concerns follow-up in the emergency department. All discharge instructions reviewed with patient and/or family. Voiced understanding. Scripts Metronidazole (Metronidazole) 500 Mg Tablet 500 MG PO TID for 5 Days, #5 TAB Prov: NETO BUENO DO 09/28/22 Cephalexin (Cephalexin) 500 Mg Tablet 500 MG PO BID for 5 Days, #5 TAB Prov: NETO BUENO DO 09/28/22 NETO BUENO DO Sep 28, 2022 19:16
[2022-09-28 19:36] LABS: BILIRUBIN,URINE NEGATIVE (NEGATIVE); CLARITY,URINE CLEAR; COLOR,URINE YELLOW; GLUCOSE, URINE (UA) NEGATIVE (NEGATIVE); KETONES,URINE NEGATIVE (NEGATIVE); LEUKOCYTE ESTERASE ,URINE NEGATIVE (NEGATIVE); NITRITE,URINE NEGATIVE (NEGATIVE); PROTEIN,URINE NEGATIVE (NEGATIVE)
[2022-09-28 19:42] LABS: BACTERIA,URINE TRACE /HPF; WBC,URINE 0-2 /HPF
[2022-09-28] MEDS ORDERED: CEPH500T PO (19:45)
[2022-09-28] MEDS ORDERED: CEPHALEXIN 250 MG (KEFLEX) CAP PO SCH (19:45)
[2022-09-28] MEDS ORDERED: METR-145 PO (19:51)
[2022-09-28 19:52] VITALS: BP 125/86
[2022-09-28] MEDS ORDERED: metroNIDAZOLE 500 MG (FLAGYL) TAB PO ONE (20:00)
== END 2022-09-28 20:02 | disposition home or self-care (01) ==
LOC: EDUNIT# 19:03 → ER FS 19:05
DX: N39.0 Urinary tract infection, site not specified (principal); N76.0 Acute vaginitis; Z32.02 Encounter for pregnancy test, result negative; Z28.310 Unvaccinated for COVID-19
CPT/HCPCS: 81000; 84703; 99283

== ENCOUNTER 2023-06-25 14:46 | Emergency (ER) | payer MEDICAID ==
[~2023-06-25] VITALS: Ht 154.9 cm; Wt 55.2 kg
[~2023-06-25 14:46] MED LIST changes: +CEPH500T PO; +METR-145 PO
--- NOTE | 2023-06-25 14:59 | ED General ---
General Stated Complaint: VOMITING; SORE THROAT; PE[place]OCK; WEAKNESS Source of Information: Patient Exam Limitations: No Limitations History of Present Illness Date Seen by Provider: Jun 25, 2023 Time Seen by Provider: 14:49 Initial Comments 32-year-old female with no pertinent past medical history coming in due to a couple days of sore throat, nonbloody nonbilious vomiting, headache, and general weakness. Her daughter became ill first last week when she started school. This patient was vomiting most of yesterday and generally does not feel well. She has not had any medications as of yet. She states she was wanting to go to the urgent care but they were closed today. She is denying any fever, chest pain, shortness of breath, severe abdominal pain, rash, dysuria, vaginal bleeding, or any other concerns. Allergies and Home Medications Allergies Coded Allergies: codeine (Verified Allergy, Unknown, 08/17/18) latex (Verified Adverse Reaction, Unknown, 08/17/18) Patient Home Medication List Home Medication List Reviewed: Yes Amoxicillin/Potassium Clav (Augmentin 875-125 Tablet) 1 Each Tablet, 1 EACH PO BID Prescribed by: PHILIP PARSONS on 08/19/18941 Cephalexin (Cephalexin) 500 Mg Tablet, 500 MG PO BID Prescribed by: NETO BUENO MD on 09/28/221944 Clindamycin HCl (Cleocin HCl) 300 Mg Capsule, 300 MG PO BID Prescribed by: PHILIP PARSONS on 08/19/18941 Docusate Sodium (Docusate Sodium) 100 Mg Capsule, 100 MG PO BID PRN for CONSTIPATION-1ST LINE Prescribed by: PHILIP PARSONS on 08/17/181824 Hydrocodone Bit/Acetaminophen (Lortab 5 Mg Tablet) 1 Tab Tab, 1-2 TAB PO Q4H PRN for PAIN-MODERATE Prescribed by: PHILIP PARSONS on 08/17/181824 Ibuprofen (Ibu) 600 Mg Tablet, 600 MG PO Q6H Prescribed by: PHILIP PARSONS on 08/17/181824 Metronidazole (Metronidazole) 500 Mg Tablet, 500 MG PO TID Prescribed by: NETO BUENO MD on 09/28/221950 Omeprazole (Omeprazole) 10 Mg Capsule.dr, 10 MG PO DAILY PRN, (Reported) Entered as Reported by: BETHANIE KING on 08/17/18300 Ondansetron (Ondansetron Odt) 4 Mg Tab.rapdis, 4 MG SL Q6H PRN for NAUSEA/VOMITING Prescribed by: MUNIR ROACH on 06/25/23 1508 Vit No.124/Iron/FA ( Vitamin Tablet) 1 Each Tablet, 1 EACH PO DAILY, (Reported) Entered as Reported by: BETHANIE KING on 08/17/18300 Review of Systems Review of Systems Constitutional: malaise EENTM: no symptoms reported Cardiovascular: no symptoms reported Gastrointestinal: see HPI Genitourinary: no symptoms reported Past Khahrpo-Kfpfzb-Stduzc Hx Seasonal Allergies Seasonal Allergies: No Past Medical History Surgery/Hospitalization HX: x 1 Surgeries: Yes Respiratory: No Cardiac: No Neurological: No Genitourinary: No Gastrointestinal: No Musculoskeletal: No Endocrine: No HEENT: No Cancer: No Psychosocial: No Integumentary: No Blood Disorders: No Family Medical History Alzheimer's disease PATERNAL GRANDFATHER No Pertinent Family Hx Physical Exam Vital Signs Vital Signs - First Documented 06/25/23 14:53 Temp 35.8 Pulse 95 Resp 18 B/P (MAP) 109/83 (92) O2 Delivery Room Air Capillary Refill : Height, Weight, BMI Height: 5'1.00" Weight: 171lbs. 0.0oz. 77.216373hq; 23.00 BMI Method: General Appearance: No Apparent Distress, WD/WN Eyes: Bilateral Eye Normal Inspection, Bilateral Eye PERRL HEENT: PERRL/EOMI, TMs Normal, Pharyngeal Erythema; No Tonsillar Exudate, No Tonsillar Enlargement; Other (Uvula midline, normal voice) Neck: Full Range of Motion, Normal Inspection, Non Tender, Supple Respiratory: Chest Non Tender, Lungs Clear, Normal Breath Sounds, No Accessory Muscle Use, No Respiratory Distress Cardiovascular: Regular Rate, Rhythm, No Edema, Normal Peripheral Pulses Gastrointestinal: Normal Bowel Sounds, Non Tender, Soft; No Distended, No Guarding Back: Normal Inspection, No CVA Tenderness Extremity: Normal Capillary Refill, Normal Inspection, Normal Range of Motion, Non Tender, No Calf Tenderness, No Pedal Edema Neurologic/Psychiatric: Alert, No Motor/Sensory Deficits, Normal Mood/Affect Skin: Normal Color, Warm/Dry Progress/Results/Core Measures Suspected Sepsis SIRS Temperature: Pulse: Respiratory Rate: Blood Pressure / Mean: Results/Orders Lab Results Laboratory Tests Test 06/25/23 14:57 Range/Units Influenza Type A (RT-PCR) Not Detected Not Detecte Influenza Type B (RT-PCR) Not Detected Not Detecte SARS-CoV-2 RNA (RT-PCR) Not Detected Not Detecte Group A Streptococcus Screen NEGATIVE NEGATIVE My Orders Orders - MUNIR ROACH MD Influenza A And B By Pcr (06/25/23 14:58) Rapid Strep A Screen (06/25/23 14:58) Covid 19 Inhouse Test (06/25/23 14:58) Ed Iv/Invasive Line Start (06/25/23 14:58) Lactated Ringers 1,000 Ml (Lactated Ring (06/25/23 15:00) Ondansetron Injection (Ondansetron Inj (06/25/23 15:00) Acetaminophen Tablet (Acetaminophen Ta (06/25/23 15:00) Ibuprofen Tablet (Ibuprofen Tablet) (06/25/23 15:00) Throat Culture Strep A Confirm (06/25/23 14:57) Medications Given in ED Current Medications Medications Dose Ordered Sig/Javan Route Start Time Stop Time Status Last Admin Dose Admin Acetaminophen 1,000 mg ONCE ONCE PO 06/25/23 15:00 06/25/23 15:01 DC 06/25/23 15:05 1,000 MG Ibuprofen 600 mg ONCE ONCE PO 06/25/23 15:00 06/25/23 15:01 DC 06/25/23 15:05 600 MG Lactated Ringer's 1,000 ml @ 0 mls/hr Q0M ONCE IV 06/25/23 15:00 06/25/23 15:01 DC 06/25/23 15:05 999 MLS/HR Ondansetron HCl 4 mg ONCE ONCE IVP 06/25/23 15:00 06/25/23 15:01 DC 06/25/23 15:05 4 MG Vital Signs/I&O 06/25/23 06/25/23 14:53 14:53 Temp 35.8 Pulse 95 Resp 18 B/P (MAP) 109/83 (92) O2 Delivery Room Air Room Air Capillary Refill : Progress Note : Progress Note 32-year-old female with above history coming in due to flulike symptoms. ABCs were intact and vitals were stable on presentation. Physical exam reassuring other than an erythematous oropharynx. Flu, COVID, strep testing sent and were all negative. An IV was placed and she was given a bolus of IV fluids as well as Zofran. Patient is overall well-appearing and I believe stable for discharge with outpatient follow-up. She is tolerating p.o. here. I will send a prescription for nausea medications. She was then discharged home in stable condition with strict return precautions Departure Impression Primary Impression: Flu-like symptoms Disposition: HOME, SELF-CARE Condition: Stable Departure-Patient Inst. Decision time for Depature: 15:50 Referrals: NO,LOCAL PHYSICIAN (PCP/Family) Primary Care Physician Patient Instructions: Viral Syndrome (DC) Add. Discharge Instructions: Take ibuprofen and/or Tylenol as needed for body aches or fever. Nausea medicines were sent to your pharmacy. Take frequent but small sips of fluids, do not worry about food until you are feeling better. You can try something such as Gatorade or Pedialyte. Scripts Ondansetron (Ondansetron Odt) 4 Mg Tab.rapdis 4 MG SL Q6H PRN for NAUSEA/VOMITING for 5 Days, #20 TAB Prov: MUNIR ROACH MD 06/25/23 Work/School Note: Work Release Form Date Seen in the Emergency Department: Jun 25, 2023 Return to Work: Jun 27, 2023 Restrictions: Return-No Fever (24hrs), Return-No Vomiting(24hrs) MUNIR ROACH MD Jun 25, 2023 14:59
[2023-06-25] MEDS ORDERED: IBUPROFEN 600 MG TABLET PO ONE (15:00)
[2023-06-25] MEDS ORDERED: LACTATED RINGERS 1,000 ML 1,000 ML IV ONE (15:00)
[2023-06-25] MEDS ORDERED: ACETAMINOPHEN 500 MG TABLET PO ONE (15:00)
[2023-06-25] MEDS ORDERED: ONDANSETRON INJECTION 4 MG/2 ML (SDV) IVP ONE (15:00)
[2023-06-25] MEDS ORDERED: ONDA4TAB11 SL ×2 (15:07→15:08)
[2023-06-25 15:33] VITALS: BP 112/65
== END 2023-06-25 15:33 | disposition home or self-care (01) ==
LOC: EDUNIT# 14:46 → ER FS 14:48
DX: J02.9 Acute pharyngitis, unspecified (principal); R51.9 Headache, unspecified; R11.10 Vomiting, unspecified; Z91.040 Latex allergy status; Z20.822 Contact with and (suspected) exposure to COVID-19; Z28.310 Unvaccinated for COVID-19
CPT/HCPCS: 87430; 87636